=== PATIENT | female | born 1970 | race Caucasian/White ===

== ENCOUNTER 2017-01-29 22:06 | Observation (INO) | payer MEDICAID ==
[2017-01-29 22:20] VITALS: BMI 44.1
--- NOTE | 2017-01-29 22:25 | ED PDOC ---
Arrival/HPI - General Chief Complaint: Shortness Of Breath Time Seen by Provider: 01/29/17 22:10 Historian: Patient - History of Present Illness Narrative History of Present Illness (Text): 01/29/17 22:22 Amalia Blount is a 46 year old female, whose past medical history includes anemia , hypertension, and hypothyroidism, who presents to the Emergency department complaining of shortness of breath. Patient states she has been experiencing shortness of breath and chest pain, worsened with exertion, for the past few weeks. Patient notes she has history of anemia and has not had any repeat bloodwork done performed in a while due to insurance issues. Patient denies any fever, chills, nausea, vomiting, diarrhea, urinary symptoms, back pain, neck pain, headache, dizziness, or any other complaints. Symptom Onset: Gradual Symptom Course: Unchanged Activities at Onset: Rest, Light Modifying Factors (Text): Worse with exertion Context: Home Past Medical History - Provider Review Nursing Documentation Reviewed: Yes - Infectious Disease Hx of Infectious Diseases: None - Tetanus Immunization Tetanus Immunization: Unknown - Cardiac Hx Hypertension: Yes - Endocrine/Metabolic Hx Hypothyroidism: Yes - Psychiatric Hx Depression: No Hx Emotional Abuse: No Hx Physical Abuse: No Hx Substance Use: No - Suicidal Assessment Feels Threatened In Home Enviroment: No Family/Social History - Physician Review Nursing Documentation Reviewed: Yes Family/Social History: No Known Family HX Smoking Status: Never Smoked Hx Alcohol Use: No Hx Substance Use: No Hx Substance Use Treatment: No Allergies/Home Meds Allergies/Adverse Reactions: Allergies No Known Allergies Allergy (Verified 03/14/14 22:37) Home Medications: Home Meds Medication Instructions Recorded Confirmed Losartan Potassium 50 mg PO DAILY 01/29/17 01/29/17 Metoprolol Tartrate 50 mg PO BID 01/29/17 01/29/17 Review of Systems - Physician Review All systems were reviewed & negative as marked: Yes - Review of Systems Constitutional: Normal. absent: Fevers Eyes: Normal ENT: Normal Respiratory: SOB Cardiovascular: Chest Pain Gastrointestinal: Normal. absent: Abdominal Pain, Diarrhea, Nausea, Vomiting Genitourinary Female: Normal. absent: Dysuria, Frequency, Hematuria, Urine Output Changes Musculoskeletal: Normal. absent: Back Pain, Neck Pain Skin: Normal. absent: Rash Neurological: Normal. absent: Headache, Dizziness Endocrine: Normal Hemo/Lymphatic: Normal Psychiatric: Normal Physical Exam Vital Signs Reviewed: Yes Vital Signs Temp Pulse Resp BP Pulse Ox 01/30/17 01:40 98.5 F 98 H 18 150/91 H 99 01/29/17 23:20 20 01/29/17 22:43 98.3 F 115 H 20 166/80 H 98 Temperature: Afebrile Blood Pressure: Normal Pulse: Regular Respiratory Rate: Normal Appearance: Positive for: Well-Appearing, Non-Toxic, Comfortable Pain Distress: None Mental Status: Positive for: Alert and Oriented X 3 - Systems Exam Head: Present: Atraumatic, Normocephalic Pupils: Present: PERRL Extroacular Muscles: Present: EOMI Conjunctiva: Present: Normal Mouth: Present: Moist Mucous Membranes Neck: Present: Normal Range of Motion Respiratory/Chest: Present: Clear to Auscultation, Good Air Exchange. No: Respiratory Distress, Accessory Muscle Use Cardiovascular: Present: Regular Rate and Rhythm, Normal S1, S2. No: Murmurs Abdomen: Present: Normal Bowel Sounds. No: Tenderness, Distention, Peritoneal Signs Back: Present: Normal Inspection Upper Extremity: Present: Normal Inspection. No: Cyanosis, Edema Lower Extremity: Present: Normal Inspection. No: Edema Neurological: Present: GCS=15, CN II-XII Intact, Speech Normal Skin: Present: Warm, Dry, Normal Color. No: Rashes Psychiatric: Present: Alert, Oriented x 3, Normal Insight, Normal Concentration Medical Decision Making ED Course and Treatment: 01/29/17 22:22 Impression: 46 year old female complaining of shortness of breath and exertional chest pain. Differential Diagnosis include but are not limited to: anemia vs. ACS vs. PE vs. CHF vs. dyspnea vs. chest pain Plan: -- EKG -- Chest X-ray -- US Duplex Lower Extremities -- Labs, cardiac enzymes, BNP, D-dimer -- Reassess and disposition Progress Notes: Reviewed EKG, sinus tachycardia at 114 bpm. Possible left atrial enlargement. Non-specific T wave changes. 01/29/17 23:20 Reviewed labs, hemoglobin: 7.8, hemtaocrit: 26.7. Blood type and screen ordered. 01/29/17 23:46 Reviewed radiology, Chest X-ray shows no acute processes. 01/30/17 00:15 Reviewed sono, US Duplex Lower Extremities are negative for DVT. Case discussed with Dr. Humphrey, who is aware and agrees with plan. Accepts pt in to her service. Pt will go to Telemetry observation for chest pain and anemia. Requests Dr. Dillon on consult. Discussed results and hospital observation plan with pt, who is aware and verbalizes understanding. Agreeable with plan. Will transfuse pt. - Lab Interpretations Lab Results: 01/29/17 22:41 01/29/17 22:41 Lab Results 01/30/17 00:30: Blood Type B POSITIVE, Antibody Screen Negative, Crossmatch See Detail, BBK History Checked No verified bt 01/29/17 22:41: Sodium 139, Potassium 4.3, Chloride 103, Carbon Dioxide 26, Anion Gap 14, BUN 11, Creatinine 0.8, Est GFR ( Amer) > 60, Est GFR (Non- Af Amer) > 60, Random Glucose 104, Calcium 9.3, Total Bilirubin 0.5, AST 24, ALT 35, Alkaline Phosphatase 91, Lactate Dehydrogenase 419, Total Creatine Kinase 119, Troponin I < 0.01, NT-Pro-B Natriuret Pep 133, Total Protein 8.3, Albumin 4.4, Globulin 3.9, Albumin/Globulin Ratio 1.1 01/29/17 22:41: WBC 8.4, RBC 4.01, Hgb 7.8 L, Hct 26.7 L, MCV 66.6 L, MCH 19.5 L , MCHC 29.2 L, RDW 17.7 H, Plt Count 597 H, MPV 9.4, Gran % 57.1, Lymph % (Auto ) 32.0, [place] % (Auto) 8.1 H, Eos % (Auto) 2.7, Baso % (Auto) 0.1, Gran # 4.82, Lymph # 2.7, [place] # 0.7 H, Eos # 0.2, Baso # 0.01 01/29/17 22:41: PT 11.2, INR 1.04, APTT 26.7, D-Dimer, Quantitative 0.30 I have reviewed the lab results: Yes - RAD Interpretation Radiology Orders: 01/29/17 22:23 CHEST PORTABLE [RAD] Stat 01/29/17 22:24 DUPLEX LOWER EXTRM VEIN BILAT [US] Stat Extruder: ED Physician - EKG Interpretation Interpreted by ED Physician: Yes Type: 12 lead EKG - Medication Orders Current Medication Orders: Discontinued Medications Acetaminophen (Tylenol 325mg Tab) 650 mg PO Q4H PRN PRN Reason: Fever >100.5 F Acetaminophen (Tylenol 325mg Tab) 650 mg PO STAT STA Stop: 01/30/17 21:13 Last Admin: 01/30/17 21:17 Dose: 650 mg Re-Assess: MAR Pain/Vitals Document 01/30/17 22:17 [facility] (Rec: 01/30/17 22:21 [facility] [id number]) Pain Reassessment Is This A Pain ReAssessment? Yes Sleep Is patient sleeping during reassessment? No Presence of Pain Presence of Pain No Cyanocobalamin (Vitamin B12 100 Mcg Tab) 100 mcg PO BID [facility] Last Admin: 01/30/17 17:44 Dose: 100 mcg Cyanocobalamin (Vitamin B12 1000 Mcg Tab) 1,000 mcg PO DAILY [facility] Last Admin: 01/31/17 09:27 Dose: 1,000 mcg Docusate Sodium (Colace) 100 mg PO TID [facility] Last Admin: 01/31/17 17:28 Dose: 100 mg Ferrous Sulfate (Feosol) 324 mg PO DAILY [facility] Last Admin: 01/31/17 09:28 Dose: 324 mg Ferrous Sulfate (Feosol) 324 mg PO .EXTRA DOSE ONE Stop: 01/30/17 10:46 Last Admin: 01/30/17 11:17 Dose: 324 mg Folic Acid (Folic Acid) 1 mg PO DAILY [facility] Last Admin: 01/31/17 09:27 Dose: 1 mg Sodium Chloride (Sodium Chloride 0.9%) 1,000 mls @ 60 mls/hr IV .[id number] STA Stop: 01/30/17 16:58 Last Admin: 01/30/17 00:41 Dose: 60 mls/hr Iron Sucrose 100 mg/ Sodium (Chloride) 105 mls @ 210 mls/hr IVPB ONCE ONE Stop: 01/30/17 11:14 Last Admin: 01/30/17 11:20 Dose: 210 mls/hr Iron Sucrose 200 mg/ Sodium (Chloride) 110 mls @ 110 mls/hr IVPB ONCE ONE Stop: 01/31/17 08:35 Last Admin: 01/31/17 08:16 Dose: 110 mls/hr Iron Sucrose (Venofer) 100 mg IVP ONCE ONE Stop: 01/30/17 10:34 Last Admin: 01/30/17 10:45 Dose: Levothyroxine Sodium (Synthroid) 100 mcg PO DAILY [facility] Last Admin: 01/31/17 09:28 Dose: 100 mcg Levothyroxine Sodium (Synthroid) 150 mcg PO ACB [facility] Losartan Potassium (Cozaar) 50 mg PO DAILY [facility] Last Admin: 01/31/17 09:28 Dose: 50 mg Metoprolol Tartrate (Lopressor) 50 mg PO BID [facility] Last Admin: 01/31/17 17:29 Dose: 50 mg Multivitamins (Thera Tab) 1 tab PO DAILY [facility] Last Admin: 01/31/17 12:58 Dose: 1 tab Non-Formulary Medication (Ferrous Sulfate [Feosol]) 325 mg PO DAILY [facility] Last Admin: 01/30/17 10:45 Dose: Non-Formulary Medication (Cyanocobalamin [Vitamin B12]) 100 mcg PO BID [facility] Pantoprazole Sodium (Protonix Ec Tab) 40 mg PO 0630 [facility] Last Admin: 01/31/17 06:09 Dose: 40 mg Polyethylene Glycol (Miralax) 17 gm PO BID PRN PRN Reason: Constipation - Scribe Statement The provider has reviewed the documentation as recorded by the Fidencioibcoreen Diaz All medical record entries made by the Fidencioibcoreen were at my direction and personally dictated by me. I have reviewed the chart and agree that the record accurately reflects my personal performance of the history, physical exam, medical decision making, and the department course for this patient. I have also personally directed, reviewed, and agree with the discharge instructions and disposition. Disposition/Present on Arrival - Present on Arrival Any Indicators Present on Arrival: No History of DVT/PE: No History of Uncontrolled Diabetes: No Urinary Catheter: No History of Decub. Ulcer: No History Surgical Site Infection Following: None - Disposition Have Diagnosis and Disposition been Completed?: Yes Diagnosis: Anemia, Chest pain Disposition: HOSPITALIZED Disposition Time: 00:15 Condition: GOOD
[2017-01-29 23:00] LABS: ADD MANUAL DIFF? NO
[2017-01-29 23:07] LABS: BASO # 0.01 K/mm3 (0.0-2.0); BASO % 0.1 % (0.0-3.0); EOS # 0.2 (0.0-0.7); EOS % 2.7 % (1.5-5.0); GRAN # 4.82 (1.4-6.5); GRAN % 57.1 % (50.0-68.0); HEMATOCRIT 26.7 % (36.0-48.0); LYMPH # 2.7 (1.2-3.4); MEAN CELL VOLUME 66.6 fL (80.0-105.0); MEAN CORPUSCULAR HEMOGLOBIN 19.5 pg (25.0-35.0); MEAN CORPUSCULAR HGB CONC 29.2 g/dl (31.0-37.0); MEAN PLATELET VOLUME 9.4 fl (7.0-11.0); MONO # 0.7 (0.1-0.6); MONO % 8.1 % (1.0-6.0); PLATELET COUNT 597 10^3/uL (120.0-450.0); RED CELL DISTRIBUTION WIDTH 17.7 % (11.5-14.5); WHITE BLOOD COUNT 8.4 10^3/ul (4.5-11.0)
[2017-01-29 23:23] LABS: INR 1.04 (0.93-1.08); PARTIAL THROMBOPLASTIN TIME 26.7 Seconds (23.7-30.8)
[2017-01-29 23:24] LABS: ALB/GLOB RATIO 1.1 (1.1-1.8); ALKALINE PHOSPHATASE 91 U/L (38-133); ALT/SGPT 35 U/L (7-56); AST/SGOT 24 U/L (15-39); BILIRUBIN,TOTAL 0.5 mg/dL (0.2-1.3); BLOOD UREA NITROGEN 11 mg/dL (7-21); CALCIUM 9.3 mg/dL (8.4-10.5); CARBON DIOXIDE 26 mmol/L (21-33); CHLORIDE 103 mmol/L (98-107); GFR AFRICAN-AMERICAN > 60; GLUCOSE,RANDOM 104 mg/dL (70-110); POTASSIUM 4.3 mmol/L (3.6-5.0); SODIUM 139 mmol/L (132-148); TOTAL PROTEIN 8.3 g/dL (5.8-8.3)
[2017-01-29 23:26] LABS: D DIMER 0.3 mg/L FEU (0-0.50)
[2017-01-29 23:50] LABS: TROPONIN I < 0.01 ng/mL
[2017-01-30] MEDS ORDERED: Sodium Chloride 0.9% 1,000 ML IV STA (00:19)
--- NOTE | 2017-01-30 08:39 | US ---
PROCEDURE: Bilateral lower extremity venous duplex Doppler. HISTORY: sob COMPARISON: None available. TECHNIQUE: Bilateral common femoral, superficial femoral, popliteal and posterior tibial veins were evaluated. Flow was assessed with color Doppler, compressibility, assessment of phasic flow and augmentation response. FINDINGS: COMMON FEMORAL VEIN: Right CFV: Unremarkable. Left CFV: Unremarkable. SUPERFICIAL FEMORAL VEIN: Right SFV: Unremarkable. Left SFV: Unremarkable. POPLITEAL VEIN: Right Popliteal: Unremarkable. Left Popliteal: Unremarkable. POSTERIOR TIBIAL VEIN: Right PTV: Unremarkable. Left PTV: Unremarkable. OTHER FINDINGS: None. IMPRESSION: No evidence of deep venous thrombosis.
--- NOTE | 2017-01-30 08:42 | RAD ---
PROCEDURE: CHEST RADIOGRAPH, 1 VIEW HISTORY: cp COMPARISON: None available. FINDINGS: LUNGS: Hazy opacity in the right hilum could be overlapping vascular structures. PLEURA: No pneumothorax or pleural fluid seen. CARDIOVASCULAR: Normal. OSSEOUS STRUCTURES: No significant abnormalities. VISUALIZED UPPER ABDOMEN: Upper abdomen is suboptimally evaluated. OTHER FINDINGS: None. IMPRESSION: Hazy opacity in the right hilum could be overlapping vascular structures. PA lateral chest radiographs recommended.
[2017-01-30] MEDS ORDERED: CYANOCOBALAMIN 100 MCG PO SCH ×2 (10:30→18:00)
[2017-01-30] MEDS ORDERED: Non Formulary Medication (Ferrous Sulfate [Feosol] 325 MG) PO SCH (10:30)
[2017-01-30] MEDS ORDERED: Iron Sucrose 100 mg/5 ml Inj IVP ONE (10:33)
--- NOTE | 2017-01-30 10:40 | CARD ---
APPROVED REPORT EKG Measurement Heart [id number] <Conclusion> Sinus tachycardia Possible Left atrial enlargement Nonspecific T wave abnormality No change
[2017-01-30] MEDS: Levothyroxine 100 MCG TAB PO SCH (11:18)
--- NOTE | 2017-01-30 11:35 | CT ---
PROCEDURE: CT Chest without contrast HISTORY: ab. chest xrays COMPARISON: None. TECHNIQUE: Contiguous axial images were obtained through the chest without intravenous contrast enhancement. Sagittal and coronal reconstructions were performed. Radiation dose (DLP): 911.68 mGy-cm. This CT exam was performed using one or more of the following dose reduction techniques: Automated exposure control, adjustment of the mA and/or kV according to patient size, and/or use of iterative reconstruction technique. FINDINGS: LUNGS: 5 millimeter nodule in the medial right lower lobe. This is seen on image 62, series 4. 6 millimeter nodule seen in the left lower lobe (image 17, series 4.) Mosaic attenuation of the lung bases which could represent small airways disease. MEDIASTINUM: Unremarkable thoracic aorta. No aneurysm. Normal sized heart. Main pulmonary artery unremarkable. No vascular congestion. No bulky lymphadenopathy. Hilar lymph nodes suboptimally evaluated. Heterogeneous soft tissue density in the prevascular space. This is of unclear clinical significance. PLEURA: No pleural fluid. No pneumothorax. BONES: No fracture. No destructive lesion. UPPER ABDOMEN: Grossly unremarkable. OTHER FINDINGS: Mild heterogeneity of the thyroid gland. IMPRESSION: No airspace opacity. Pulmonary nodules as described above. Guidelines by the Fleischner society (radiology 2005; 237:395-400) suggests that in patients with low risk for lung cancer, nodules from 5 mm to 6 mm in diameter should have follow-up in approximately 12 months. In patients with high-risk, such as those were smokers, follow-up is recommended in 6 months. Patients with a known malignancy or risk for metastases should receive 3 month follow-up. Mild heterogeneity of the thyroid gland. Dedicated ultrasound recommended. Heterogeneous soft tissue density in the prevascular space. This is of unclear clinical significance.
[2017-01-30 12:27] LABS: BASO # 0.03 K/mm3 (0.0-2.0); BASO % 0.4 % (0.0-3.0); EOS # 0.2 (0.0-0.7); EOS % 3.2 % (1.5-5.0); GRAN # 4.73 (1.4-6.5); GRAN % 63.9 % (50.0-68.0); HEMATOCRIT 29.7 % (36.0-48.0); LYMPH # 1.9 (1.2-3.4); LYMPH % 25.1 % (22.0-35.0); MEAN CORPUSCULAR HEMOGLOBIN 20.6 pg (25.0-35.0); MEAN CORPUSCULAR HGB CONC 30.3 g/dl (31.0-37.0); MEAN PLATELET VOLUME 9.4 fl (7.0-11.0); MONO # 0.6 (0.1-0.6); MONO % 7.4 % (1.0-6.0); PLATELET COUNT 576 10^3/uL (120.0-450.0); RED CELL DISTRIBUTION WIDTH 19.2 % (11.5-14.5); WHITE BLOOD COUNT 7.4 10^3/ul (4.5-11.0)
[2017-01-30 12:35] LABS: BLOOD UREA NITROGEN 10 mg/dL (7-21); CALCIUM 9.1 mg/dL (8.4-10.5); CARBON DIOXIDE 26 mmol/L (21-33); CHLORIDE 102 mmol/L (98-107); GFR AFRICAN-AMERICAN > 60; GLUCOSE,RANDOM 95 mg/dL (70-110); POTASSIUM 4.2 mmol/L (3.6-5.0); SODIUM 140 mmol/L (132-148)
[2017-01-30 12:44] LABS: IRON 435 ug/dL (45-180)
[2017-01-30 12:53] LABS: ADD MANUAL DIFF? NO
--- NOTE | 2017-01-30 16:15 | CON ---
DATE: 01/30/2017 REASON FOR CONSULTATION: Sinus tachycardia. The patient is a 46-year-old [place] female who has a history of hypertension, hypothyroidism and c hronic anemia that required blood transfusion in the past. The patient does not recall any GI workup done in the past. She does take aspirin and Motrin excessively for her pain, especially menstrual p ain. The patient does report dark stool, but attributes that to the iron pill that she takes. The p atient is not aware of any history of heart attack in the past. The patient presents because of shor tness of breath and chest pain on exertion. SOCIAL HISTORY: The patient is a nonsmoker. MEDICATIONS: Cozaar 50 mg daily, vitamin B12 100 mcg p.o. twice a day, Feosol 324 mg once a day, Lop ressor 50 mg twice a day, Synthroid 100 mcg once a day, Tylenol 650 mg p.o. q. 4 hours. REVIEW OF SYSTEMS: No hematemesis. No fever or chills. No syncope. PHYSICAL EXAMINATION: GENERAL: The patient is a middle-aged female who does not appear to be in any distress. VITAL SIGNS: Blood pressure 159/79, heart rate 111, temperature 98, respiration 20. HEENT: Pale conjunctivae. CHEST: Clear. HEART: S1, S2 regular. ABDOMEN: Soft. EXTREMITIES: No edema or calf tenderness. LABORATORIES: Hemoglobin and hematocrit on admission were 7.8 and 26.7 and after receiving 1 unit of packed RBC transfusion, today's hemoglobin and hematocrit are 9.0 and 29.7, white count is within no rmal limit, platelet count is elevated 576. PT, PTT and D-dimer, INR are all within normal limits. Today's SMA-7 is within normal limits. Iron is elevated at 435 with iron saturation 91%. Total iron binding capacity is within normal limits. Chest CT scan without contrast: No airspace opacity, pulmonary nodules, mild heterogenicity of the t hyroid gland, dedicated ultrasound recommended. EKG revealed sinus tachycardia at 114, left atrial e nlargement with nonspecific T-wave changes. ASSESSMENT: 1. Chronic anemia requiring blood transfusion. 2. Uncontrolled hypertension. 3. Sinus tachycardia. RECOMMENDATIONS: Continue current Cozaar at 50 mg once a day, Lopressor at 50 mg twice a day, Synthr oid 100 mcg once a day. May discontinue iron supplement. Obtain TSH level, echocardiogram and thyro id ultrasound. Stepan Simms MD cc: [id number] TT: 01/30/2017 16:14:52 Confirmation # [id number] Dictation # [id number]
[2017-01-30] MEDS ORDERED: POLYETHYLENE GLYCOL 3350 17 GM/Dose PACKET PO PRN (17:34)
--- NOTE | 2017-01-30 17:34 | CP.PCM.HP ---
History of Present Illness - History of Present Illness History of Present Illness: CC: Shortness of breath, palpitations, lightheadeness x couple of weeks HPI: 46 Year old [place] morbidly obese female with history of hypothyroidism , iron deficiency anemia due to menorrhagia, essential hypertension who got admitted last night for evaluation of shortness of breath, tiredness, palpitations and lightheadedness for the past couple of weeks which got worsened over the past few days and patient was told by PMD to come to the hospital. Currently she denies any symptoms including chest pain, headache, dizziness, nausea, vomiting, abdominal pain or urinary complaints. Patient states that she has been non complaint with iron due to constipation. PMD: Dr Nuris Humphrey Inspector Screen [employer]ing: Dr eSveriano Walsh: [facility] PMH:hypothyroidism, iron deficiency anemia due to menorrhagia, essential hypertension Allergy: NKDA Meds: Synthroid, feosol, metoprolol, losartan and B12 Hospitalization: Last hospitalization was in 2010 due to similar reason. Family History: All family members have hypertension. Father had HTN and CAD Social History: Does not smoke, drink alcohol or use street drugs. Lives at home with her . Does not have children. Present on Admission - Present on Admission Any Indicators Present on Admission: No History of DVT/PE: No History of Uncontrolled Diabetes: No Urinary Catheter: No Decubitus Ulcer Present: No Review of Systems - Constitutional Constitutional: Daytime Sleepiness, Snoring, Weight Gain. absent: Anorexia, Chills, Excessive Sweating, Fatigue, Fever, Frequent Falls, Headache, Increased Appetite, Malaise, Night Sweats, Weakness - EENT Eyes: absent: Blurred Vision, Change in Vision, Decreased Night Vision, Floaters , Irritation, Itchy Eyes, Loss of Peripheral Vision, Requires Corrective Lenses , Sees Flashes, Spots in Vision Ears: absent: Decreased Hearing, Ear Discharge, Ear Pain Nose/Mouth/Throat: absent: Nasal Congestion, Nasal Discharge, Nasal Obstruction , Nasal Trauma, Sinus Pain, Sinus Pressure, Bleeding Gums, Change in Voice, Hoarsness, Lip Swelling, Mouth Lesions, Mouth Pain, Throat Swelling, Tongue Swelling, Facial Pain - Cardiovascular Cardiovascular: Dyspnea on Exertion. absent: Acrocyanosis, Chest Pain, Chest Pain at Rest, Chest Pain with Activity, Edema, Irregular Heart Rhythm, Leg Edema , Leg Ulcers, Lightheadedness, Orthopnea, Paroxysmal Nocturnal Dyspnea, Pedal Edema, Radiating Pain, Rapid Heart Rate - Respiratory Respiratory: absent: Cough, Dyspnea, Hemoptysis, Dyspnea on Exertion, Wheezing, Chest Congestion, Excessive Mucous Production - Gastrointestinal Gastrointestinal: absent: Abdominal Pain, Belching, Bloating, Change in Bowel Habits, Constipation, Cramping, Dysphagia, Fecal Incontinence, Heartburn, Hematemesis, Hematochezia - Genitourinary Genitourinary: absent: Change in Urinary Stream, Difficulty Urinating, Dysuria, Flank Pain, Urinary Incontinence, Urinary Frequency, Urinary Hesitance, Urinary Urgency - Musculoskeletal Musculoskeletal: absent: Abnormal Gait, Atrophy, Back Pain, Deformity, Joint Swelling, Loss of Height, Muscle Cramps, Muscle Weakness, Myalgias, Neck Pain, Numbness, Stiffness - Integumentary Integumentary: absent: Acne, Alopecia, Bleeding Lesions, Change in Hair, Change in Nails, Changing Lesions, Non-Healing Lesions, Photosensitivity, Pruritus, Rash - Neurological Neurological: absent: Abnormal Gait, Abnormal Hearing, Abnormal Movements, Burning Sensations, Confusion, Convulsions, Disequilibrium, Dizziness, Numbness , Frequent Falls, Headaches, Radicular Pain, Restless Legs, Syncope, Tingling, Tremor - Psychiatric Psychiatric: absent: Abnormal Sleep Pattern, Anhedonia, Anxiety, Auditory Hallucinations, Behavioral Changes, Change in Libido, Confusion, Depression, Difficulty Concentrating, Hopelessness, Irritability, Memory Loss, Mood Swings, Panic Attacks, Suicidal Ideation, Visual Hallucinations, Tactile Hallucinations - Endocrine Endocrine: absent: Change in Body Appearance, Change in Libido, Cold Intolorance , Deepening of Voice, Excessive Sweating, Flushing, Heat Intolorance, Increase in Ring/Shoe/Hat Size, Palpitations, Polydipsia, Polyphagia, Polyuria - Hematologic/Lymphatic Hematologic: absent: Easy Bleeding, Easy Bruising, Lymphadenopathy Past Patient History - Infectious Disease Hx of Infectious Diseases: None - Tetanus Immunizations Tetanus Immunization: Unknown - Past Social History Smoking Status: Never Smoked - CARDIAC Hx Hypertension: Yes - ENDOCRINE/METABOLIC Hx Hypothyroidism: Yes - MUSCULOSKELETAL/RHEUMATOLOGICAL Hx Falls: No - PSYCHIATRIC Hx Substance Use: No Meds Allergies/Adverse Reactions: Allergies Allergy/AdvReac Type Severity Reaction Status Date / Time No Known Allergies Allergy Verified 03/14/14 22:37 Physical Exam - Constitutional Appears: Well, No Acute Distress - Head Exam Head Exam: ATRAUMATIC, NORMAL INSPECTION, NORMOCEPHALIC - Eye Exam Eye Exam: EOMI, Normal appearance - ENT Exam ENT Exam: Mucous Membranes Moist - Neck Exam Neck exam: Positive for: Full Rom, Normal Inspection - Respiratory Exam Respiratory Exam: Clear to Auscultation Bilateral, NORMAL BREATHING PATTERN. absent: Accessory Muscle Use, Chest Wall Tenderness, Rhonchi, Wheezes, Respiratory Distress - Cardiovascular Exam Cardiovascular Exam: REGULAR RHYTHM, +S1, +S2 - GI/Abdominal Exam GI & Abdominal Exam: Distended, Normal Bowel Sounds, Soft. absent: Tenderness - Rectal Exam Rectal Exam: Deferred - Extremities Exam Extremities exam: Positive for: full ROM, normal capillary refill, normal inspection, pedal pulses present. Negative for: joint swelling, pedal edema - Back Exam Back exam: FULL ROM, NORMAL INSPECTION. absent: CVA tenderness (L), CVA tenderness (R), paraspinal tenderness, rash noted, tenderness, vertebral tenderness - Neurological Exam Neurological exam: Alert, CN II-XII Intact, Normal Gait, Oriented x3, Reflexes Normal - Psychiatric Exam Psychiatric exam: Normal Affect, Normal Mood - Skin Skin Exam: Dry, Intact, Normal Color, Warm Results - Vital Signs Recent Vital Signs: Last Vital Signs Temp 98 F 01/30/17 12:00 Pulse 79 01/30/17 14:00 Resp 20 01/30/17 12:00 BP 159/79 H 01/30/17 12:00 Pulse Ox 98 01/30/17 06:24 - Labs Result Diagrams: 01/30/17 12:00 01/30/17 12:00 Labs: Laboratory Results - last 24 hr 01/30/17 01/30/17 01/30/17 02:40 12:00 12:00 WBC 7.4 RBC 4.37 Hgb 9.0 L Hct 29.7 L MCV 68.0 L MCH 20.6 L MCHC 30.3 L RDW 19.2 H Plt Count 576 H MPV 9.4 Gran % 63.9 Lymph % (Auto) 25.1 [place] % (Auto) 7.4 H Eos % (Auto) 3.2 Baso % (Auto) 0.4 Gran # 4.73 Lymph # 1.9 [place] # 0.6 Eos # 0.2 Baso # 0.03 Sodium 140 Potassium 4.2 Chloride 102 Carbon Dioxide 26 Anion Gap 16 BUN 10 Creatinine 0.7 Est GFR ( Amer) > 60 Est GFR (Non-Af Amer) > 60 Random Glucose 95 Calcium 9.1 Iron TIBC % Saturation Blood Type Confirm B POSITIVE 01/30/17 12:00 WBC RBC Hgb Hct MCV MCH MCHC RDW Plt Count MPV Gran % Lymph % (Auto) [place] % (Auto) Eos % (Auto) Baso % (Auto) Gran # Lymph # [place] # Eos # Baso # Sodium Potassium Chloride Carbon Dioxide Anion Gap BUN Creatinine Est GFR ( Amer) Est GFR (Non-Af Amer) Random Glucose Calcium Iron 435 H TIBC 478 % Saturation 91 H Blood Type Confirm Assessment & Plan - Assessment and Plan (Free Text) Plan: This is 46 year old female with the history of hypothyroidism, iron deficiency anemia due to menorrhagia, essential hypertension who got admitted last night for evaluation of shortness of breath, tiredness, palpitations and lightheadedness due to symptomatic anemia. 1-Symptomatic anemia: secondary to menorrhagia. S/P 1 unit of prbc and venofer. Iron studies , folate and b12 are pending at this time. Inspector Screen [employer]ing on board. Patient will follow up with obgyn as an outpatient. Patient denies taking NSAIDs on regular basis. Will check stool for occult blood. 2-Multiple pulmonary nodules on CT scan: Patient does not smoke however she reports history of passive smoking. There is a 5mm nodule in RLL and 6 mm nodule in LLL. Plan to repeat CT scan in 6 months for surveillance. 3-Suspected NATALI: Will recommend sleep study as an outpatient. Discussed with Dr Khan. 4-Hypothyroidism: Will continue synthroid. Thyroid ultrasound done and result is pending. Will check thyroid function test in am. 5-Essential hypertension: Continue metoprolol and losartan. 6-GI prophylaxis: start protonix 7-DVT prophylaxis: Start scd. 8-Morbid obesity: Life style modification advised. 9-Constipation: will start colace and miralax. Dispo: Upon discharge patient will follow up with Dr Humphrey, Dr العلي, [employer] Supervisor and Dr Khan.
[2017-01-30 18:48] LABS: FOLATE 11.1 ng/mL
--- NOTE | 2017-01-30 18:52 | CON ---
DATE: 01/30/2017 REFERRING PHYSICIAN: . REASON FOR CONSULT: Shortness of breath, lung nodule. HISTORY OF PRESENT ILLNESS: This is a 46-year-old obese female with past medical history significant for hypothyroid, known history of iron deficiency anemia in the past, received transfusion and IV ir on, has a menorrhagia, hypertension, comes into ER with lightheadedness, palpitations, shortness of b reath. No specific chest pain. Workup on CAT scan shows small lung nodule, otherwise unremarkable. She has been followed by Dr. العلي for hematology point of view. Admitted to have loud snoring, day time sleepy and tired. PAST MEDICAL HISTORY: Hypothyroid, anemia which is iron deficiency, hypertension. ALLERGIES: None known. SOCIAL HISTORY: No history of smoking, but does have a secondhand smoking . FAMILY HISTORY: Positive for coronary artery disease, hypertension. ALLERGIES: None known. MEDICATIONS: Presently, she is on Colace 100 mg 3 times a day, Cozaar 50 mg daily, ferrous sulfate 3 25 mg daily, metoprolol tartrate 50 mg twice a day, MiraLax 17 grams twice a day, Protonix 40 mg ruddy y, Synthroid 100 mcg daily, Tylenol p.r.n., vitamin B12 100 mg daily. REVIEW OF SYSTEMS: No headache, no rhinitis. Does have loud snoring, daytime sleepy and tired, shor t of breath with exertion. No nausea, no vomiting, no abdominal pain, no dysuria. No leg pain or le g swelling. PHYSICAL EXAMINATION: GENERAL: Lying in the bed in no acute distress. VITAL SIGNS: Temp is 98, heart is 82, respiratory rate is 20, blood pressure 165/86, pulse ox 99% on room air. HEENT: Moist mucous membranes. Crowded airway. Mallampati score is 4. NECK: Supple. No JVD. LUNGS: Has a fair airflow with few rhonchi. HEART: S1, S2. ABDOMEN: Soft, nontender. No organomegaly. EXTREMITIES: There is no edema. NEUROLOGIC: Awake, alert, follows simple commands. LABORATORY DATA: Shows hemoglobin on admission was 7.8, after transfusion is 9.0. Hematocrit 29.7, WBC 7.4, platelet is 576. INR 1.04, PTT is 27. D-dimer 0.30. Sodium 140, potassium 4.2, chloride 1 02, bicarbonate 26, BUN 10, creatinine 0.7, glucose 95, calcium 9.1, iron is 435. Ferritin is pendin g. AST 24, ALT 35, alkaline phosphatase is 91. ProBNP is 133. B12, folate is pending. CT of the c hest is done, which shows a pulmonary nodule which is 5 mm in the medial right lower lobe area. Ther e is also a 6 mm nodule in the left lower lobe. Venous Doppler of lower extremity negative for DVT. IMPRESSION AND PLAN: Shortness of breath, probably secondary to severe anemia, status post transfusi on, feels better. Also getting IV iron. History of hypothyroidism, hypertension, obesity, may have sleep apnea syndrome, found to have a lung nodule. Case discussed with , who is PMD. Pulmo nary point of view, she is stable, needs a followup CAT scan in about 6 months or so. She is going f or echocardiogram. If stable, she could be discharged home and need attended sleep study as an outpa tient. Continue followup with hematology. Thank you and will follow with you. Jarrell Khan MD cc: [phone] TT: 01/30/2017 18:51:16 Confirmation # [id number] Dictation # [id number] mn
--- NOTE | 2017-01-30 19:50 | CON ---
DATE: 01/30/2017 HISTORY OF PRESENT ILLNESS: The patient is a 46-year-old female who was diagnosed with iron deficiency anemia for past 2 years. She has menorrhagia, which is the likely cause of severe anemia. She was admitted to the hospital with shortness of breath, lightheadedness and palpitations for a few weeks. She was found to have hemoglobin of 7.8. Thalassemia trait was ruled out. She does not have thalassemia trait. She continues to have heavy menstruation. PAST MEDICAL HISTORY: Hypothyroidism, iron deficiency anemia related to menorrhagia, hypertension. ALLERGIES: No known drug allergies. HOME MEDICATIONS: Synthroid, metoprolol, losartan, B12. FAMILY HISTORY: Positive for hypertension and coronary artery disease. SOCIAL HISTORY: No history of drinking, no history of alcohol abuse. REVIEW OF SYSTEMS: As per HPI. Rest of 12-point review of systems reviewed and negative. PHYSICAL EXAMINATION: GENERAL: Comfortable in bed, in no acute distress. VITAL SIGNS: Tachycardia heart rate 98 per minute, blood pressure 159/70, heart rate is 79 per minute. HEENT: Normal. NECK: No lymphadenopathy. CHEST: Air entry present, equal bilateral. No added sound. CARDIOVASCULAR: Within normal limits. ABDOMEN: Soft, nontender, no hepatosplenomegaly. EXTREMITIES: No edema. CENTRAL NERVOUS SYSTEM: Alert, oriented x 3, no focal sensorimotor deficit. LABORATORY DATA: White count 8.4, hemoglobin 7.8, hematocrit 26.7, MCV 66, platelet count 597. Granulocyte 57%, lymphocyte 32, monocyte 8%. Sodium 140, potassium 4.2, BUN 10, creatinine 0.7. Iron studies are erroneous due to ongoing IV iron infusion. Ferritin of 5, B12 less than 159. Folate 11.1. ASSESSMENT: 1. Severe iron deficiency. 2. B12 deficiency. 3. Hypothyroidism. 4. Morbid obesity. 5. Hypertension. PLAN: IV iron 200 mg given today. she can continue PO iron 325 mg PO BID. B12 1 mg daily, folic acid 1 mg daily. If B12, folic acid do not improve on orals, she will need parenteral B12 supplementation. Hypothyroidism on Synthroid 100 mcg daily; continue that. Thyroid function test, TSH normal, TSH with the a.m. labs. For menorrhagia, she will need OB consult, will benefit from Lupron monthly. Kylie العلي MD cc: [id number] TT: 01/30/2017 19:49:45 Confirmation # [id number] Dictation # [id number] ln MTDD
--- NOTE | 2017-01-30 21:14 | CP.PCM.PN ---
Subjective - Date & Time of Evaluation Date of Evaluation: 01/30/17 Time of Evaluation: 21:13 - Subjective Subjective: # 22 angiocath was inserted in right arm. Dx:Poor venous access. S:Requested pain medicine for pain in right arm from being poked for IV access earlier by others. Has no other complaints now. Pertinent medical records was reviewed. O: Last Vital Signs 3 Temp 98.5 F 01/31/17 18:00 Pulse 82 01/31/17 18:00 Resp 20 01/31/17 18:00 BP 170/93 H 01/31/17 18:00 Pulse Ox 96 01/31/17 05:14 Awake, alert , not in distress. Obese. LUNGS:Normal breathing pattern. Right arm examination in normal. A:Right arm pain. P:Tylenol 650 mg PO x 1. Objective - Vital Signs/Intake and Output Vital Signs (last 24 hours): Temp Pulse Resp BP Pulse Ox 98 F 90 18 165/86 H 99 01/30/17 17:36 01/30/17 18:00 01/30/17 17:36 01/30/17 17:43 01/30/17 17:36 Intake and Output: 01/30/17 01/31/17 18:59 06:59 Intake Total 540 Output Total 1100 Balance -560 - Medications Medications: Current Medications Acetaminophen (Tylenol 325mg Tab) 650 mg PO Q4H PRN PRN Reason: Fever >100.5 F Acetaminophen (Tylenol 325mg Tab) 650 mg PO STAT STA Stop: 01/30/17 21:13 Cyanocobalamin (Vitamin B12 1000 Mcg Tab) 1,000 mcg PO DAILY ON LICENSE OF [facility] Docusate Sodium (Colace) 100 mg PO TID ON LICENSE OF [facility] Last Admin: 01/30/17 17:43 Dose: 100 mg Ferrous Sulfate (Feosol) 324 mg PO DAILY ON LICENSE OF [facility] Folic Acid (Folic Acid) 1 mg PO DAILY ON LICENSE OF [facility] Levothyroxine Sodium (Synthroid) 100 mcg PO DAILY ON LICENSE [facility] Last Admin: 01/30/17 11:18 Dose: 100 mcg Losartan Potassium (Cozaar) 50 mg PO DAILY ON [facility] Last Admin: 01/30/17 11:17 Dose: 50 mg Metoprolol Tartrate (Lopressor) 50 mg PO BID ON LICENSE OF [facility] Last Admin: 01/30/17 17:43 Dose: 50 mg Pantoprazole Sodium (Protonix Ec Tab) 40 mg PO 0630 ON LICENSE OF [facility] Polyethylene Glycol (Miralax) 17 gm PO BID PRN PRN Reason: Constipation - Labs Labs: 01/30/17 12:00 01/30/17 12:00 PT 11.2 Seconds (9.9-11.8) 01/29/17 22:41 INR 1.04 (0.93-1.08) 01/29/17 22:41 APTT 26.7 Seconds (23.7-30.8) 01/29/17 22:41
[2017-01-31 05:14] VITALS: O2SAT 96
[2017-01-31] MEDS ORDERED: Pantoprazole 40 mg EC Tab PO SCH (06:30)
[2017-01-31 07:13] LABS: HEMATOCRIT 28.2 % (36.0-48.0); MEAN CELL VOLUME 68.4 fL (80.0-105.0); MEAN CORPUSCULAR HEMOGLOBIN 20.4 pg (25.0-35.0); MEAN CORPUSCULAR HGB CONC 29.8 g/dl (31.0-37.0); MEAN PLATELET VOLUME 9.7 fl (7.0-11.0); RED CELL DISTRIBUTION WIDTH 19.1 % (11.5-14.5); WHITE BLOOD COUNT 7.2 10^3/ul (4.5-11.0)
[2017-01-31 07:16] LABS: T4 7.4 ug/dL (5.5-11.0)
[2017-01-31 07:29] LABS: THYROID STIMULATING HORMONE 9.02 mIU/mL (0.46-4.68)
[2017-01-31 07:33] LABS: BLOOD UREA NITROGEN 11 mg/dL (7-21); CALCIUM 8.8 mg/dL (8.4-10.5); CARBON DIOXIDE 27 mmol/L (21-33); CHLORIDE 102 mmol/L (98-107); GFR AFRICAN-AMERICAN > 60; GLUCOSE,RANDOM 103 mg/dL (70-110); SODIUM 137 mmol/L (132-148)
[2017-01-31] MEDS: Levothyroxine 100 MCG TAB PO SCH (09:28)
[2017-01-31] MEDS ORDERED: Multivitamin Therapeutic Tab PO SCH (12:45)
--- NOTE | 2017-01-31 13:31 | PN ---
DATE: 01/31/2017 REASON FOR CONSULTATION: Sinus tachycardia, shortness of breath, chest pain. BRIEF CLINICAL HISTORY: This is a 46-year-old [place] female with a past medical history significa nt for obesity, hypertension, hypothyroidism, chronic anemia requiring blood transfusion. Admitted w ith hemoglobin 7.4 and very short of breath on going to the bathroom. Cardiology consult was called for cardiac evaluation. The patient used to take aspirin and Motrin for menstrual pain. Also, repor ts dark tarry colored stool. Admitting hemoglobin 7.8. The patient got the unit of blood and since then, she stated symptoms significantly improved. Denies any chest pain, shortness of breath, any pa lpitation now. PHYSICAL EXAMINATION: VITAL SIGNS: Temperature afebrile, heart rate 75, blood pressure 133/73. HEENT: PERRLA. Extraocular muscles intact. NECK: Supple. No carotid bruits. No thyromegaly. CHEST: Clear to auscultation. HEART: S1, S2 regular. ABDOMEN: Soft. EXTREMITIES: Clubbing, cyanosis negative. BLOOD WORKUP: WBC , hemoglobin 8.4, hematocrit 28.2, platelet count 541. Chemistry shows sodiu m , potassium 4, chloride 102, carbon dioxide 27, anion gap of 12, BUN 11, creatinine 0.7. Trop onin 0.01, negative. 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 RECOMMENDATION: Consider gastrointestinal workup. Echo to assess left ventricular function if not d one recently. Will avoid a stress test now because the patient may end up in false abnormal stress t est, end up in doing catheterization, but definitely get the echo to assess left ventricular function if not done recently. Keep hemoglobin around 7. gastrointestinal workup. EKG is pretty brent gn. Discussed with the patient. We will discontinue telemetry. Thank you, Dr. Humphrey, for providing us the opportunity in taking care of the patient. Also, we will adjust the medication for blood pressure and for thyroid because patient is still hypothyroidism. T SH is 9 and patient was on 100 mcg of levothyroxine at home and today's TSH is 9.02, so we will incre ase to 125 mcg. We will get the lipid profile as well as get the hemoglobin A1c. Thank you, Dr. Humphrey, for providing us the opportunity in taking care of the patient. The patient i s not in congestive heart failure. BNP was 133. Clinically also, patient is not in congestive heart failure. If the patient gets symptomatic, consider packed red blood cell transfusion. Repeat the b lood workup in the morning. Jarrell Gooden MD cc: [id number] TT: 01/31/2017 13:31:11 Confirmation # [id number] Dictation # [id number]
--- NOTE | 2017-01-31 15:30 | CP.PCM.PN ---
Subjective - Date & Time of Evaluation Date of Evaluation: 01/31/17 Time of Evaluation: 12:00 - Subjective Subjective: Pt has very poor veins,needs iv access. Objective - Vital Signs/Intake and Output Vital Signs (last 24 hours): Temp Pulse Resp BP Pulse Ox 97.3 F L 75 18 133/73 96 01/31/17 12:00 01/31/17 12:00 01/31/17 12:00 01/31/17 12:00 01/31/17 05:14 Intake and Output: 01/31/17 01/31/17 06:59 18:59 Intake Total 360 Output Total 0 Balance 360 - Medications Medications: Current Medications Acetaminophen (Tylenol 325mg Tab) 650 mg PO Q4H PRN PRN Reason: Fever >100.5 F Cyanocobalamin (Vitamin B12 1000 Mcg Tab) 1,000 mcg PO DAILY [facility] Last Admin: 01/31/17 09:27 Dose: 1,000 mcg Docusate Sodium (Colace) 100 mg PO TID [facility] Last Admin: 01/31/17 13:56 Dose: 100 mg Ferrous Sulfate (Feosol) 324 mg PO DAILY [facility] Last Admin: 01/31/17 09:28 Dose: 324 mg Folic Acid (Folic Acid) 1 mg PO DAILY [facility] Last Admin: 01/31/17 09:27 Dose: 1 mg Levothyroxine Sodium (Synthroid) 150 mcg PO ACB [facility] Losartan Potassium (Cozaar) 50 mg PO DAILY [facility] Last Admin: 01/31/17 09:28 Dose: 50 mg Metoprolol Tartrate (Lopressor) 50 mg PO BID [facility] Last Admin: 01/31/17 09:27 Dose: 50 mg Multivitamins (Thera Tab) 1 tab PO DAILY [facility] Last Admin: 01/31/17 12:58 Dose: 1 tab Pantoprazole Sodium (Protonix Ec Tab) 40 mg PO 0630 [facility] Last Admin: 01/31/17 06:09 Dose: 40 mg Polyethylene Glycol (Miralax) 17 gm PO BID PRN PRN Reason: Constipation - Labs Labs: 01/31/17 06:30 01/31/17 06:30 PT 11.2 Seconds (9.9-11.8) 01/29/17 22:41 INR 1.04 (0.93-1.08) 01/29/17 22:41 APTT 26.7 Seconds (23.7-30.8) 01/29/17 22:41 - Constitutional Appears: No Acute Distress Assessment and Plan - Assessment and Plan (Free Text) Assessment: Poor venous access Plan: Hep lock inserted in the L forearm. #24 angiocath used.
--- NOTE | 2017-01-31 16:51 | CP.PCM.DIS ---
<Padmini Krueger - Last Filed: 02/01/17 13:21> Provider - Provider Date of Admission: 01/30/17 00:39 Attending physician: Kev Mancia MD Primary care physician: Nuris Humphrey MD Time Spent in preparation of Discharge (in minutes): 35 Hospital Course - Lab Results Lab Results: Most Recent Lab Values WBC 7.2 10^3/ul (4.5-11.0) 01/31/17 06:30 RBC 4.12 10^6/uL (3.5-6.1) 01/31/17 06:30 Hgb 8.4 gm/dL (12.0-16.0) L 01/31/17 06:30 Hct 28.2 % (36.0-48.0) L 01/31/17 06:30 MCV 68.4 fL (80.0-105.0) L 01/31/17 06:30 MCH 20.4 pg (25.0-35.0) L 01/31/17 06:30 MCHC 29.8 g/dl (31.0-37.0) L 01/31/17 06:30 RDW 19.1 % (11.5-14.5) H 01/31/17 06:30 Plt Count 541 10^3/uL (120.0-450.0) H 01/31/17 06:30 MPV 9.7 fl (7.0-11.0) 01/31/17 06:30 Gran % 63.9 % (50.0-68.0) 01/30/17 12:00 Lymph % (Auto) 25.1 % (22.0-35.0) 01/30/17 12:00 Yancey % (Auto) 7.4 % (1.0-6.0) H 01/30/17 12:00 Eos % (Auto) 3.2 % (1.5-5.0) 01/30/17 12:00 Baso % (Auto) 0.4 % (0.0-3.0) 01/30/17 12:00 Gran # 4.73 (1.4-6.5) 01/30/17 12:00 Lymph # 1.9 (1.2-3.4) 01/30/17 12:00 Yancey # 0.6 (0.1-0.6) 01/30/17 12:00 Eos # 0.2 (0.0-0.7) 01/30/17 12:00 Baso # 0.03 K/mm3 (0.0-2.0) 01/30/17 12:00 PT 11.2 Seconds (9.9-11.8) 01/29/17 22:41 INR 1.04 (0.93-1.08) 01/29/17 22:41 APTT 26.7 Seconds (23.7-30.8) 01/29/17 22:41 D-Dimer, Quantitative 0.30 mg/L FEU (0-0.50) 01/29/17 22:41 Sodium 137 mmol/L (132-148) 01/31/17 06:30 Potassium 4.0 mmol/L (3.6-5.0) 01/31/17 06:30 Chloride 102 mmol/L (98-107) 01/31/17 06:30 Carbon Dioxide 27 mmol/L (21-33) 01/31/17 06:30 Anion Gap 12 (10-20) 01/31/17 06:30 BUN 11 mg/dL (7-21) 01/31/17 06:30 Creatinine 0.7 mg/dL (0.5-1.4) 01/31/17 06:30 Est GFR ( Amer) > 60 01/31/17 06:30 Est GFR (Non-Af Amer) > 60 01/31/17 06:30 Random Glucose 103 mg/dL (70-110) 01/31/17 06:30 Calcium 8.8 mg/dL (8.4-10.5) 01/31/17 06:30 Iron 435 ug/dL (45-180) H 01/30/17 12:00 TIBC 478 ug/dL (265-497) 01/30/17 12:00 % Saturation 91 % (20-55) H 01/30/17 12:00 Ferritin 5.1 ng/mL 01/30/17 12:00 Total Bilirubin 0.5 mg/dL (0.2-1.3) 01/29/17 22:41 AST 24 U/L (15-39) 01/29/17 22:41 ALT 35 U/L (7-56) 01/29/17 22:41 Alkaline Phosphatase 91 U/L (38-133) 01/29/17 22:41 Lactate Dehydrogenase 419 U/L (333-699) 01/29/17 22:41 Total Creatine Kinase 119 U/L (35-230) 01/29/17 22:41 Troponin I < 0.01 ng/mL 01/29/17 22:41 NT-Pro-B Natriuret Pep 133 pg/mL (0-450) 01/29/17 22:41 Total Protein 8.3 g/dL (5.8-8.3) 01/29/17 22:41 Albumin 4.4 g/dL (3.0-4.8) 01/29/17 22:41 Globulin 3.9 gm/dL 01/29/17 22:41 Albumin/Globulin Ratio 1.1 (1.1-1.8) 01/29/17 22:41 Vitamin B12 < 159 pg/mL (239-931) L 01/30/17 12:00 Folate 11.1 ng/mL 01/30/17 12:00 Thyroxine (T4) 7.4 ug/dL (5.5-11.0) 01/31/17 06:30 TSH 3rd Generation 9.02 mIU/mL (0.46-4.68) H 01/31/17 06:30 Blood Type B POSITIVE 01/30/17 00:30 Blood Type Confirm B POSITIVE 01/30/17 02:40 Antibody Screen Negative 01/30/17 00:30 Crossmatch See Detail 01/30/17 00:30 BBK History Checked No verified bt 01/30/17 00:30 - Hospital Course Hospital Course: 46 year old female with the history of hypothyroidism, iron deficiency anemia due to menorrhagia, essential hypertension who got admitted last night for evaluation of shortness of breath, tiredness, palpitations and lightheadedness due to symptomatic anemia. Symptomatic anemia secondary to menorrhagia. Patient was transfused 1 unit of prbc and venofer. Folate was within normal limits, b12 is decreased. Well Testing Operator was consulted. Patient is to follow up with obgyn as an outpatient. On CT scan showed multiple pulmonary nodules, 5mm nodule in RLL and 6 mm nodule in LLL, with mild heterogeneity of thyroid gland. Patient denies smoking however she reports history of passive smoking. Patient will require repeat CT scan in 3 months for surveillance. Pulm was consulted, they recommended sleep study as an outpatient. Patient TSH was elevated, patient states she stopped taking synthriod due to financial reason. Synthroid was started. Thyroid ultrasound and echo was completed. Patient is stable for discharge home, she is feeling better. Upon discharge patient will follow up with PMD, Dr Humphrey, Dr العلي, [facility] Former and Dr Khan. Discharge plan was discussed with patient she is in agreement. Discharge Exam - Head Exam Head Exam: ATRAUMATIC, NORMAL INSPECTION, NORMOCEPHALIC - Eye Exam Eye Exam: Normal appearance - ENT Exam ENT Exam: Mucous Membranes Moist - Respiratory Exam Respiratory Exam: Clear to PA & Lateral, NORMAL BREATHING PATTERN, UNREMARKABLE. absent: Rales, Rhonchi, Wheezes, Respiratory Distress - Cardiovascular Exam Cardiovascular Exam: REGULAR RHYTHM. absent: Tachycardia, Diastolic murmur, Systolic Murmur - GI/Abdominal Exam GI & Abdominal Exam: Normal Bowel Sounds, Soft, Unremarkable. absent: Distended , Firm, Guarding, Tenderness - Neurological Exam Neurological exam: Alert, Oriented x3 - Skin Skin Exam: Dry, Intact, Normal Color, Warm Discharge Plan - Discharge Medications Prescriptions: Cyanocobalamin [Vitamin B12 1000 mcg Tab] 1,000 mcg PO DAILY #30 tab Docusate [Colace] 100 mg PO TID PRN #20 cap PRN Reason: Constipation Ferrous Sulfate [Feosol] 324 mg PO DAILY #30 ect Folic Acid 1 mg PO DAILY #30 tab Levothyroxine Sodium 100 mcg PO DAILY #30 - Follow Up Plan Condition: GOOD Disposition: HOME/ ROUTINE Instructions: Chest Pain (DC), Heart Healthy Diet (DC), Iron Deficiency Anemia (DC) Additional Instructions: Patient is stable for discharge home - follow up with PMD, in 1 week - follow up with pulm in 2 weeks, will require repeat CT chest in 3 months to monitor lung nodule - follow up heme/onc in 2 weeks - follow up with HORTICULTURAL NURSERY ASSISTANT in 2 weeks - repeat TSH in 4 weeks New medications: - colase - vit B12 1000 mg daily - folate 1 mg daily continue: - levothyroxine 100mcg daily - feosol 324mg daily Referrals: Nuris Humphrey MD [Primary Care Provider] - Kylie العلي MD [Staff Provider] - Jarrell Khan MD [Staff Provider] - <Kev Mancia - Last Filed: 02/01/17 14:46> Provider - Provider Date of Admission: 01/30/17 00:39 Attending physician: Kev Mancia MD Primary care physician: Nuris Humphrey MD Hospital Course - Lab Results Lab Results: Most Recent Lab Values WBC 7.2 10^3/ul (4.5-11.0) 01/31/17 06:30 RBC 4.12 10^6/uL (3.5-6.1) 01/31/17 06:30 Hgb 8.4 gm/dL (12.0-16.0) L 01/31/17 06:30 Hct 28.2 % (36.0-48.0) L 01/31/17 06:30 MCV 68.4 fL (80.0-105.0) L 01/31/17 06:30 MCH 20.4 pg (25.0-35.0) L 01/31/17 06:30 MCHC 29.8 g/dl (31.0-37.0) L 01/31/17 06:30 RDW 19.1 % (11.5-14.5) H 01/31/17 06:30 Plt Count 541 10^3/uL (120.0-450.0) H 01/31/17 06:30 MPV 9.7 fl (7.0-11.0) 01/31/17 06:30 Gran % 63.9 % (50.0-68.0) 01/30/17 12:00 Lymph % (Auto) 25.1 % (22.0-35.0) 01/30/17 12:00 Yancey % (Auto) 7.4 % (1.0-6.0) H 01/30/17 12:00 Eos % (Auto) 3.2 % (1.5-5.0) 01/30/17 12:00 Baso % (Auto) 0.4 % (0.0-3.0) 01/30/17 12:00 Gran # 4.73 (1.4-6.5) 01/30/17 12:00 Lymph # 1.9 (1.2-3.4) 01/30/17 12:00 Yancey # 0.6 (0.1-0.6) 01/30/17 12:00 Eos # 0.2 (0.0-0.7) 01/30/17 12:00 Baso # 0.03 K/mm3 (0.0-2.0) 01/30/17 12:00 PT 11.2 Seconds (9.9-11.8) 01/29/17 22:41 INR 1.04 (0.93-1.08) 01/29/17 22:41 APTT 26.7 Seconds (23.7-30.8) 01/29/17 22:41 D-Dimer, Quantitative 0.30 mg/L FEU (0-0.50) 01/29/17 22:41 Sodium 137 mmol/L (132-148) 01/31/17 06:30 Potassium 4.0 mmol/L (3.6-5.0) 01/31/17 06:30 Chloride 102 mmol/L (98-107) 01/31/17 06:30 Carbon Dioxide 27 mmol/L (21-33) 01/31/17 06:30 Anion Gap 12 (10-20) 01/31/17 06:30 BUN 11 mg/dL (7-21) 01/31/17 06:30 Creatinine 0.7 mg/dL (0.5-1.4) 01/31/17 06:30 Est GFR ( Amer) > 60 01/31/17 06:30 Est GFR (Non-Af Amer) > 60 01/31/17 06:30 Random Glucose 103 mg/dL (70-110) 01/31/17 06:30 Calcium 8.8 mg/dL (8.4-10.5) 01/31/17 06:30 Iron 435 ug/dL (45-180) H 01/30/17 12:00 TIBC 478 ug/dL (265-497) 01/30/17 12:00 % Saturation 91 % (20-55) H 01/30/17 12:00 Ferritin 5.1 ng/mL 01/30/17 12:00 Total Bilirubin 0.5 mg/dL (0.2-1.3) 01/29/17 22:41 AST 24 U/L (15-39) 01/29/17 22:41 ALT 35 U/L (7-56) 01/29/17 22:41 Alkaline Phosphatase 91 U/L (38-133) 01/29/17 22:41 Lactate Dehydrogenase 419 U/L (333-699) 01/29/17 22:41 Total Creatine Kinase 119 U/L (35-230) 01/29/17 22:41 Troponin I < 0.01 ng/mL 01/29/17 22:41 NT-Pro-B Natriuret Pep 133 pg/mL (0-450) 01/29/17 22:41 Total Protein 8.3 g/dL (5.8-8.3) 01/29/17 22:41 Albumin 4.4 g/dL (3.0-4.8) 01/29/17 22:41 Globulin 3.9 gm/dL 01/29/17 22:41 Albumin/Globulin Ratio 1.1 (1.1-1.8) 01/29/17 22:41 Vitamin B12 < 159 pg/mL (239-931) L 01/30/17 12:00 Folate 11.1 ng/mL 01/30/17 12:00 Thyroxine (T4) 7.4 ug/dL (5.5-11.0) 01/31/17 06:30 TSH 3rd Generation 9.02 mIU/mL (0.46-4.68) H 01/31/17 06:30 Blood Type B POSITIVE 01/30/17 00:30 Blood Type Confirm B POSITIVE 01/30/17 02:40 Antibody Screen Negative 01/30/17 00:30 Crossmatch See Detail 01/30/17 00:30 BBK History Checked No verified bt 01/30/17 00:30 Attending/Attestation - Attestation I have personally seen and examined this patient.: Yes I have fully participated in the care of the patient.: Yes I have reviewed all pertinent clinical information, including history, physical exam and plan: Yes Notes (Text): 02/01/17 14:43 Attending note; Patient seen and examined with resident. Patient is a 46-year-old female admitted with anemia. Status post 1 unit PRBC transfusion. [facility] C[facility] bleeding/menorrhagia is a cause of anemia. Patient will follow-up with PANTRY COOK next week. Patient also got IV iron. Evaluated by power manager Dr. العلي. Continue by mouth ferrous sulfate, vitamin B-[address] chest showed pulmonary nodules. Evaluated by pulmonary . Needs repeat CT in 6 months. Atypical chest pain; evaluated by cardiology Dr. Gooden. Echocardiogram done. Upon discharge the patient will follow-up with PMD . Diagnosis; Anemia Menorrhagia Pulmonary nodule Obesity Hypothyroidism
[2017-01-31 17:31] VITALS: BP 170/93; PULSE 82
[2017-01-31 18:02] VITALS: RESP 20; TEMP 98.5
--- NOTE | 2017-01-31 21:26 | PN ---
DATE: 01/31/2017 REFERRING PHYSICIAN: Dr. Humphrey. SUBJECTIVE: She is out of bed to chair, being discharged home. No headache. No rhinitis. No nause a. No vomiting, diarrhea. No leg pain or leg swelling. OBJECTIVE: GENERAL: No acute distress. VITAL SIGNS: Temperature is 98, heart is 82, respiratory rate is 20, blood pressure 133/73. HEENT: Moist mucous membranes. Crowded airway. Mallampati score is 4. NECK: Supple. No JVD. LUNGS: Has a fair airflow with rhonchi. HEART: S1, S2. ABDOMEN: Soft, nontender. No organomegaly. EXTREMITIES: There is no edema. NEUROLOGIC: Awake, alert, follows simple command. MEDICATIONS: Reviewed. No new changes are reported. LABORATORY DATA: Shows hemoglobin 8.4, hematocrit 28.2, WBC 7.2, platelet is 541. Sodium 137, potas sium 4.0, chloride 102, bicarbonate 27, BUN 11, creatinine 0.7, glucose 103, calcium is 8.8. Had ech ocardiogram done, report is still pending. IMPRESSION AND PLAN: Symptomatic anemia requiring transfusion, obesity, hypertension, renal insuffic iency, hypothyroid, hypertension, lung nodule. The patient is being discharged home. Will need outp atient sleep study, gastric prophylaxis, hematology followup. Followup CAT scan in 6 months to 1 yea r to assure the stability of lung nodule. Informed patient and about followup CT and its imp ortance. The patient and family expressed understanding. Jarrell Khan MD cc: [phone] TT: 01/31/2017 21:26:27 Confirmation # [id number] Dictation # [id number] tn
--- NOTE | 2017-02-01 01:00 | CARD ---
APPROVED REPORT EXAM: Two-dimensional and M-mode echocardiogram with Doppler and color Doppler. 2D DIMENSIONS Left Atrium (2D)4.3 (1.6-4.0cm)IVSd1.2 (0.7-1.1cm) LVDd5.5 (3.9-5.9cm)PWd1.2 (0.7-1.1cm) LVDs2.9 (2.5-4.0cm)FS (%) 47.0 % LVEF (%)77.9 (>50%) M-Mode DIMENSIONS Left Atrium (MM)4.20 (2.5-4.0cm)Aortic Root2.70 (2.2-3.7cm) Aortic Cusp Exc.2.10 (1.5-2.0cm) Aortic Valve AoV Peak Idjhaond603.0cm/sAoV VTI30.7cmAO Peak GR.9mmHg LVOT Peak Omqscjkr26.8cm/sLVOT VTI20.50cmAO Mean GR.6mmHg Mitral Valve MV E Bakgxyzl566.0cm/sMV A Kwuskczq78.5cm/sE/A ratio1.4 TDI Lateral E' Peak V10.80cm/sMedial E' Peak V7.21cm/sE/Lateral E'10.4 E/Medial E'15.5 Tricuspid Valve TR Peak Bkaliqvw391ax/sRAP KHUCDRTQ60qzDtES Peak Gr.15mmHg [id number] LEFT VENTRICLE The left ventricle is normal size. There is borderline concentric left ventricular hypertrophy. The left ventricular function is normal. The left ventricular ejection fraction is within the normal range. There is normal LV segmental wall motion. The left ventricular diastolic function is normal. RIGHT VENTRICLE The right ventricle is normal size. There is normal right ventricular wall thickness. The right ventricular systolic function is normal. ATRIA The left atrium is borderline dilated. The right atrium size is normal. AORTIC VALVE The aortic valve is not well visualized. There is trace valvular aortic stenosis. MITRAL VALVE The mitral valve is mildly thickened. There is no mitral valve regurgitation noted. TRICUSPID VALVE There is no pulmonary hypertension. GREAT VESSELS The aortic root displays mild to moderate sclerocalcific changes of the aortic root. The IVC collapses <50% with inspiration. PERICARDIAL EFFUSION There is no pericardial effusion. <Conclusion> The left ventricle is normal size. There is borderline concentric left ventricular hypertrophy. The left ventricular function is normal. The left ventricular ejection fraction is within the normal range. There is normal LV segmental wall motion.
[2017-02-01] MEDS ORDERED: Levothyroxine 150 MCG TAB PO SCH (07:30)
--- NOTE | 2017-03-24 17:45 | US ---
HISTORY: nodules TECHNIQUE: Sonographic evaluation of the thyroid gland. COMPARISON: Chest CT from same day FINDINGS: RIGHT LOBE: Measures 5 x 2 x 2 cm. Heterogeneous echotexture Nodules: Nodule 1: 1.3 x 0.9 x 0.6 centimeter hypoechoic nodule in the lower pole. LEFT LOBE: Measures 5 x 1.5 x 1.4 cm. Heterogeneous echotexture. Nodules: None ISTHMUS: Measures 0.3 cm. Heterogeneous echotexture. Nodules: None OTHER FINDINGS: None . IMPRESSION: Right lower pole nodule. Heterogeneous echotexture in both parotid glands. Ultrasound cannot fully distinguish benign from malignant nodules therefore tissue diagnosis of the nodules which are 1 cm or greater should be considered. Please refer to guidelines below. Ultrasound feature of thyroid nodule * Recommendation Microcalcifications: Strongly consider FNA if = 1 cm Solid or coarse calcifications: Strongly consider FNA if = 1.5 cm Mixed solid and cystic or almost entirely cystic with solid mural component: Consider FNA if = 2 cm None of above, but substantial growth compared to prior US: Consider FNA Almost entirely cystic, none of above criteria, and no growth: FNA probably unnecessary Reference: Betty MC, Henry KAUR, Don STRICKLAND, et al. Management of Thyroid Nodules Detected at US: Society of Radiologists in Ultrasound Consensus Conference
== END 2017-01-31 19:00 | disposition home or self-care (01) ==
LOC: ED 22:06 → ERH 01-30 00:39 → 2RNO 01-30 03:12
PROVIDERS: ADMIT Internal Medicine; ATTEND Internal Medicine
DX: D50.0 Iron deficiency anemia secondary to blood loss (chronic) (principal); R07.89 Other chest pain; I10 Essential (primary) hypertension; E03.9 Hypothyroidism, unspecified; E53.8 Deficiency of other specified B group vitamins; E66.01 Morbid (severe) obesity due to excess calories; F55.8 Abuse of other non-psychoactive substances; Z68.42 Body mass index [BMI] 45.0-49.9, adult; N92.0 Excessive and frequent menstruation with regular cycle; N28.9 Disorder of kidney and ureter, unspecified; K59.00 Constipation, unspecified; Z77.22 Contact with and (suspected) exposure to environmental tobacco smoke (acute) (chronic); Z79.82 Long term (current) use of aspirin; Z82.49 Family history of ischemic heart disease and other diseases of the circulatory system; R40.2412 Glasgow coma scale score 13-15, at arrival to emergency department; R00.0 Tachycardia, unspecified; G47.33 Obstructive sleep apnea (adult) (pediatric); R91.8 Other nonspecific abnormal finding of lung field; M79.601 Pain in right arm
CPT/HCPCS: 36415; 36430; 71010; 71250; 76536; 80048; 80053; 82550; 82607; 82728; 82746; 83540; 83550; 83615; 83880; 84436; 84443; 84484; 85025; 85027; 85378; 85610; 85730; 86850; 86900; 86920; 93005; 93306; 93970; 96365; 96376; 99285; G0378; J1756; J7040; P9016

== ENCOUNTER 2018-01-13 20:48 | Emergency (ER) | payer MEDICAID ==
[2018-01-13 21:05] VITALS: BMI 47.4
[2018-01-13] MEDS ORDERED: Nitroglycerin 2% Ointment Foilpak UD TOP STA (21:25)
--- NOTE | 2018-01-13 21:32 | ED PDOC ---
Arrival/HPI - General Chief Complaint: Shortness Of Breath Time Seen by Provider: 01/13/18 20:50 Historian: Patient - History of Present Illness Narrative History of Present Illness (Text): 01/13/18 21:29 47 year old female, whose past medical history includes anemia, hypertension, and hypothyroidism, presents to the emergency department complaining of dyspnea on exertion for the past couple of months recently associated with chest like discomfort on exertion. Patient denies any fever, cough, chills, nausea, vomiting, diarrhea, urinary symptoms, back pain, neck pain, headache, dizziness , or any other complaints. PMD: Dr. Nuris Humphrey Diploma Pharmacy Technician: Dr. العلي Time/Duration: > month Symptom Onset: Gradual Symptom Course: Unchanged Activities at Onset: Light Context: Exertion Past Medical History - Provider Review Nursing Documentation Reviewed: Yes - Infectious Disease Hx of Infectious Diseases: None - Tetanus Immunization Tetanus Immunization: Unknown - Reproductive Menopause: No - Cardiac Hx Hypertension: Yes - Endocrine/Metabolic Hx Hypothyroidism: Yes - Musculoskeletal/Rheumatological Hx Falls: No - Psychiatric Hx Depression: No Hx Emotional Abuse: No Hx Physical Abuse: No Hx Substance Use: No - Suicidal Assessment Feels Threatened In Home Enviroment: No Family/Social History - Physician Review Nursing Documentation Reviewed: Yes Family/Social History: Hypertension (Father), CAD/[place] (Father) Smoking Status: Never Smoked Hx Alcohol Use: No Hx Substance Use: No Hx Substance Use Treatment: No Allergies/Home Meds Allergies/Adverse Reactions: Allergies No Known Allergies Allergy (Verified 03/14/14 22:37) Home Medications: Home Meds Medication Instructions Recorded Confirmed Losartan Potassium 50 mg PO DAILY 01/29/17 01/13/18 Metoprolol Tartrate 50 mg PO BID 01/29/17 01/13/18 Review of Systems - Physician Review All systems were reviewed & negative as marked: Yes - Review of Systems Constitutional: absent: Fevers, Other (Chills) Respiratory: absent: Cough Cardiovascular: Chest Pain, YANG Gastrointestinal: absent: Diarrhea, Nausea, Vomiting Genitourinary Female: absent: Dysuria, Frequency, Hematuria Musculoskeletal: absent: Back Pain, Neck Pain Neurological: absent: Headache, Dizziness Physical Exam Vital Signs Reviewed: Yes Vital Signs Temp Pulse Resp BP Pulse Ox 01/14/18 00:19 98.0 F 99 H 19 141/80 99 01/13/18 21:49 21 01/13/18 21:32 100 H 17 144/83 99 01/13/18 20:53 98.6 F 114 H 20 203/102 H 98 Temperature: Afebrile Blood Pressure: Normal Pulse: Regular Respiratory Rate: Normal Appearance: Positive for: Well-Appearing, Non-Toxic, Comfortable Pain Distress: None Mental Status: Positive for: Alert and Oriented X 3 - Systems Exam Head: Present: Atraumatic, Normocephalic Pupils: Present: PERRL Extroacular Muscles: Present: EOMI Conjunctiva: Present: Normal Mouth: Present: Moist Mucous Membranes Neck: Present: Normal Range of Motion Respiratory/Chest: Present: Clear to Auscultation, Good Air Exchange. No: Respiratory Distress, Accessory Muscle Use Cardiovascular: Present: Regular Rate and Rhythm, Normal S1, S2. No: Murmurs Abdomen: No: Tenderness, Distention, Peritoneal Signs Back: Present: Normal Inspection Upper Extremity: Present: Normal Inspection. No: Cyanosis, Edema Lower Extremity: Present: Normal Inspection. No: Edema Neurological: Present: GCS=15, CN II-XII Intact, Speech Normal Skin: Present: Warm, Dry, Normal Color. No: Rashes Psychiatric: Present: Alert, Oriented x 3, Normal Insight, Normal Concentration Medical Decision Making ED Course and Treatment: 01/13/18 21:35 Impression: 47 year old female presents complaining of dyspnea on exertion for the past couple of months recently associated with chest-like discomfort. Plan: -- EKG -- Labs -- Chest X-ray -- Nitro-Bid 2% Oint -- Reassess and disposition Prior Visits: Notes and results from previous visits were reviewed. Patient was last seen in the emergency department on 01/29/17 presents complaining of shortness of breath associated with exertional chest pain. Patient was admitted. Progress Notes: 01/13/18 21:41 EKG shows Sinus Tachycardia at 108 BPM with non-specific ST/T changes with no prior for comparison. Interpreted by me. 01/14/18 00:33 CXR Impression: As read by me, no acute process. 01/14/18 00:46 Case discussed with Community Outreach Specialist and Dr. Deyvi Blount who is aware and agrees with the plan. Patient will be admitted to hospitalist service. - Lab Interpretations Lab Results: 01/13/18 22:53 01/13/18 22:53 Lab Results 01/13/18 22:53: WBC 9.3 D, RBC 3.93, Hgb 7.8 L, Hct 27.1 L, MCV 69.0 L, MCH 19.8 L, MCHC 28.8 L, RDW 16.7 H, Plt Count 532 H, MPV 9.6 01/13/18 22:53: Sodium 143, Potassium 4.3, Chloride 104, Carbon Dioxide 26, Anion Gap 17, BUN 12, Creatinine 0.8, Est GFR ( Amer) > 60, Est GFR (Non- Af Amer) > 60, Random Glucose 134 H, Calcium 9.0, Total Bilirubin 0.1 L, AST 24 , ALT 33, Alkaline Phosphatase 73, Lactate Dehydrogenase 431, Total Creatine Kinase 100, Troponin I < 0.01, Total Protein 7.3, Albumin 4.1, Globulin 3.2, Albumin/Globulin Ratio 1.3 01/13/18 22:53: PT 13.0 H, INR 1.14 H, APTT 27.7, D-Dimer, Quantitative < 200 I have reviewed the lab results: Yes - RAD Interpretation Radiology Orders: 01/13/18 21:25 CHEST PORTABLE [RAD] Stat - EKG Interpretation Interpreted by ED Physician: Yes Type: 12 lead EKG - Medication Orders Current Medication Orders: Discontinued Medications Aspirin (Aspirin) 325 mg PO ONCE STA Stop: 01/14/18 00:05 Nitroglycerin (Nitro-Bid 2% Oint) 1 ea TOP ONCE STA Stop: 01/13/18 21:26 Last Admin: 01/13/18 22:55 Dose: Not Given Non-Admin Reason: Patient Refused - Scribe Statement The provider has reviewed the documentation as recorded by the Roselia Guerra Provider Scribe Attestation: All medical record entries made by the Roselia were at my direction and personally dictated by me. I have reviewed the chart and agree that the record accurately reflects my personal performance of the history, physical exam, medical decision making, and the department course for this patient. I have also personally directed, reviewed, and agree with the discharge instructions and disposition. Disposition/Present on Arrival - Present on Arrival Any Indicators Present on Arrival: No History of DVT/PE: No History of Uncontrolled Diabetes: No Urinary Catheter: No History of Decub. Ulcer: No History Surgical Site Infection Following: None - Disposition Have Diagnosis and Disposition been Completed?: Yes Diagnosis: Chest pain, Dyspnea on exertion Disposition: HOSPITALIZED Disposition Time: 00:40 Patient Plan: Observation Patient Problems: Current Active Problems Problem Status Onset Chest pain Acute Dyspnea on exertion Acute Condition: STABLE Discharge Instructions (ExitCare): Chest Pain (ED) Referrals: Nuris Humphrey MD [Primary Care Provider] - Follow up with primary Forms: [email or web address] (Persian)
[2018-01-13 23:13] LABS: HEMOGLOBIN 7.8 g/dL (12.0-16.0); MEAN CORPUSCULAR HEMOGLOBIN 19.8 pg (25.0-35.0); MEAN CORPUSCULAR HGB CONC 28.8 g/dl (31.0-37.0); MEAN PLATELET VOLUME 9.6 fl (7.0-11.0); RBC 3.93 10^6/uL (3.5-6.1); RED CELL DISTRIBUTION WIDTH 16.7 % (11.5-14.5); WHITE BLOOD COUNT 9.3 10^3/ul (4.5-11.0)
[2018-01-13 23:23] LABS: ALB/GLOB RATIO 1.3 (1.1-1.8); ALBUMIN 4.1 g/dL (3.0-4.8); ALT/SGPT 33 U/L (7-56); AST/SGOT 24 U/L (14-36); BLOOD UREA NITROGEN 12 mg/dL (7-21); GFR AFRICAN-AMERICAN > 60; GFR NON-AFRICAN AMERICAN > 60
[2018-01-13 23:34] LABS: TROPONIN I < 0.01 ng/mL
[2018-01-13 23:38] LABS: D DIMER < 200 ng/mL (0-243); INR 1.14 (0.93-1.08); PARTIAL THROMBOPLASTIN TIME 27.7 Seconds (25.1-36.5)
[2018-01-14] MEDS ORDERED: Albuterol-Ipratrop 3 mg / 0.5 (3 ml) UD IH PRN (01:20)
[2018-01-14] MEDS: Albuterol-Ipratrop 3 mg / 0.5 (3 ml) UD IH SCH ×4 (02:12→20:02)
[2018-01-14] MEDS ORDERED: Albuterol-Ipratrop 3 mg / 0.5 (3 ml) UD IH STA (02:45)
--- NOTE | 2018-01-14 02:49 | CP.PCM.HP ---
<Cole Childers - Last Filed: 01/14/18 02:58> History of Present Illness - History of Present Illness History of Present Illness: Medicine H&P: Dr. Laurel Blount CC: Shortness of breath HPI: 47 year old morbidly obese female with history of hypothyroidism, iron deficiency anemia due to menorrhagia, and essential hypertension presents for evaluation of shortness of breath. Patient states that for the past couple of years she has been having progressively worse shortness of breath and that she is awakened at night short of breath and coughing up phlegm several times a month. Patient states that she has never had a formal diagnosis of Asthma but has seen Dr. Khan in the past. At present patient denies any other symptoms besides shortness of breath, but apparently admitted to chest pain to ER physician Review of Systems: 12 point ROS obtained and negative except as per HPI Surgical History: Patient denies Medical History: Hypothyroidism, Iron deficiency anemia due to menorrhagia, Essential hypertension Allergies: NKDA Social History: Denies alcohol, tobacco, illicits Home Meds: Synthroid, feosol, metoprolol, losartan and B12 Family History: Hypertension, CAD PMD: Dr Nuris Humphrey Fall Internship: Dr العلي Fish Checker: Dr. Khan Present on Admission - Present on Admission Any Indicators Present on Admission: No Past Patient History - Infectious Disease Hx of Infectious Diseases: None - Tetanus Immunizations Tetanus Immunization: Unknown - Past Social History Smoking Status: Never Smoked - CARDIAC Hx Hypertension: Yes - ENDOCRINE/METABOLIC Hx Hypothyroidism: Yes - MUSCULOSKELETAL/RHEUMATOLOGICAL Hx Falls: No - PSYCHIATRIC Hx Depression: No Hx Emotional Abuse: No Hx Physical Abuse: No Hx Substance Use: No Meds Allergies/Adverse Reactions: Allergies Allergy/AdvReac Type Severity Reaction Status Date / Time No Known Allergies Allergy Verified 03/14/14 22:37 Physical Exam - Constitutional Appears: Well - Head Exam Head Exam: ATRAUMATIC, NORMAL INSPECTION, NORMOCEPHALIC - Eye Exam Eye Exam: EOMI, Normal appearance, PERRL Pupil Exam: NORMAL ACCOMODATION, PERRL - ENT Exam ENT Exam: Mucous Membranes Moist, Normal Exam - Neck Exam Neck exam: Positive for: Normal Inspection - Respiratory Exam Respiratory Exam: Clear to Auscultation Bilateral, NORMAL BREATHING PATTERN - Cardiovascular Exam Cardiovascular Exam: REGULAR RHYTHM - GI/Abdominal Exam GI & Abdominal Exam: Normal Bowel Sounds, Soft. absent: Tenderness - Extremities Exam Extremities exam: Positive for: normal inspection - Back Exam Back exam: NORMAL INSPECTION - Neurological Exam Neurological exam: Alert, CN II-XII Intact, Normal Gait, Oriented x3, Reflexes Normal - Psychiatric Exam Psychiatric exam: Normal Affect, Normal Mood - Skin Skin Exam: Dry, Intact, Normal Color, Warm Results - Vital Signs Recent Vital Signs: Last Vital Signs Temp 98.2 F 01/14/18 01:26 Pulse 97 H 01/14/18 01:26 Resp 18 01/14/18 01:26 BP 151/95 H 01/14/18 01:26 Pulse Ox 100 01/14/18 01:26 - Labs Result Diagrams: 01/13/18 22:53 01/13/18 22:53 Labs: Laboratory Results - last 24 hr 01/14/18 01:30 Phosphorus 3.9 Magnesium 2.1 Assessment & Plan - Assessment and Plan (Free Text) Assessment: 47 year old female with pertinent history of iron deficiency anemia due to menorrhagia and chronic shortness of breath presents with shortness of breath. Patient wheezing and visibly dyspneic on exam, has many night time awakenings. Patient's hemoglobin is 7.9 on admission; Trope is negative, EKG shows no ST elevations but shows tachycardia. Last iron studies in 2017 showed elevated iron but otherwise normal studies. Patient on feosol at home. Plan Chest Pain rule out ACS - EKG and Tropes series - Cardiology Consult: Dr. Dillon Shortness of Breath, 2/2 Asthma VS Anemia - Duonebs WATSON and PRN - Chest CT - past history of nodules; 5mm nodule in RLL and 6 mm nodule in LLL in 2017 - Consider Pulm Consult: Dr. Khan - See below Symptomatic Anemia 2/2 to Menorrhagia. - Feosol, Venofer - 1 U PRBC - Fe Studies, Folate, B12 - Hematology Consult: Dr. العلي History Constipation 2/2 Iron supplementation - Continue home medications History Hypothyroidism - Continue Synthroid History Hypertension - Continue Metoprolol and Diovan Morbid Obesity - Advised proper food hygiene GI/DVT Prophylaxis - Protonix/Lovenox <Carmelo Blount N - Last Filed: 01/14/18 04:24> Results - Vital Signs Recent Vital Signs: Last Vital Signs Temp 98.2 F 01/14/18 01:26 Pulse 97 H 01/14/18 01:26 Resp 18 01/14/18 01:26 BP 151/95 H 01/14/18 01:26 Pulse Ox 100 01/14/18 01:26 - Labs Result Diagrams: 01/13/18 22:53 01/13/18 22:53 Labs: Laboratory Results - last 24 hr 01/14/18 01/14/18 01:30 03:00 Phosphorus 3.9 Magnesium 2.1 NT-Pro-B Natriuret Pep 221
[2018-01-14] MEDS: Pantoprazole 40 mg EC Tab PO SCH (06:19)
[2018-01-14 07:15] LABS: HDL CHOLESTEROL 37 mg/dL (29-60)
[2018-01-14 07:26] LABS: LDL CHOLESTEROL 86 mg/dL (0-129)
[2018-01-14 07:28] LABS: TROPONIN I < 0.01 ng/mL
[2018-01-14 07:32] LABS: IRON 362 ug/dL (45-180)
[2018-01-14 07:41] LABS: % IRON SATURATION 80 % (20-55); TOTAL IRON BINDING CAPACITY 452 ug/dL (265-497)
[2018-01-14] MEDS: Levothyroxine 100 MCG TAB PO SCH (08:12)
--- NOTE | 2018-01-14 08:49 | RAD ---
PROCEDURE: CHEST RADIOGRAPH, 1 VIEW HISTORY: chest pain COMPARISON: 01/29/2017 FINDINGS: LUNGS: Clear. PLEURA: No pneumothorax or pleural fluid seen. CARDIOVASCULAR: Normal. OSSEOUS STRUCTURES: No significant abnormalities. VISUALIZED UPPER ABDOMEN: Normal. OTHER FINDINGS: None. IMPRESSION: No active disease.
[2018-01-14] MEDS: Enoxaparin 40 mg Syringe SC SCH (10:21)
[2018-01-14 10:46] LABS: BASO # 0.01 K/mm3 (0.0-2.0); BASO % 0.1 % (0.0-3.0); EOS # 0.2 (0.0-0.7); EOS % 2.7 % (1.5-5.0); GRAN # 4.62 (1.4-6.5); GRAN % 58.6 % (50.0-68.0); HEMOGLOBIN 7.4 g/dL (12.0-16.0); LYMPH # 2.5 (1.2-3.4); LYMPH % 31.1 % (22.0-35.0); MEAN CELL VOLUME 69.5 fl (80.0-105.0); MEAN CORPUSCULAR HEMOGLOBIN 20.3 pg (25.0-35.0); MEAN CORPUSCULAR HGB CONC 29.2 g/dl (31.0-37.0); MEAN PLATELET VOLUME 9.7 fl (7.0-11.0); MONO # 0.6 (0.1-0.6); MONO % 7.5 % (1.0-6.0); RBC 3.64 10^6/uL (3.5-6.1); RED CELL DISTRIBUTION WIDTH 16.9 % (11.5-14.5); WHITE BLOOD COUNT 7.9 10^3/ul (4.5-11.0)
[2018-01-14 10:57] LABS: ALB/GLOB RATIO 1.3 (1.1-1.8); ALT/SGPT 31 U/L (7-56); AST/SGOT 38 U/L (14-36); BLOOD UREA NITROGEN 11 mg/dL (7-21); CALCIUM 8.7 mg/dL (8.4-10.5); GFR AFRICAN-AMERICAN > 60; GFR NON-AFRICAN AMERICAN > 60
--- NOTE | 2018-01-14 11:18 | CARD ---
APPROVED REPORT EKG Measurement Heart [id number] [place] [id number] <Conclusion> Normal sinus rhythm Possible Left atrial enlargement Borderline ECG
--- NOTE | 2018-01-14 11:19 | CARD ---
APPROVED REPORT EKG Measurement Heart [id number] SD 154P51 [id number] <Conclusion> Sinus tachycardia Otherwise normal ECG
--- NOTE | 2018-01-14 11:37 | US ---
HISTORY: mennorrhgia COMPARISON: May 16, 2017 TECHNIQUE: Real-time transabdominal ultrasound examination of the pelvis was performed. Only transabdominal images are submitted. FINDINGS: UTERUS: Measures 11.6 x 6.0 x 7.5 cm. Uterus has grossly homogeneous echogenicity. Possible small fundal fibroid is not excluded although none was seen on prior study. ENDOMETRIUM: Endometrial complex is limited by this technique. Patient is presently undergoing menses. Endometrial complex measures between 9-18 millimeters. CERVIX: No appreciable focal cervical mass is seen on this transabdominal exam. Nabothian cyst and possible echogenic area were seen on the prior ultrasound exam transvaginal images. RIGHT OVARY: Measures 4.1 x 3 x 3.7 cm. No solid mass. Normal flow. LEFT OVARY: Left ovary was not adequately seen. No left adnexal masses are noted. FREE FLUID: No significant free fluid noted. OTHER FINDINGS: None. IMPRESSION: Extremely limited exam due to patient body habitus. Endometrial complex evaluation is extremely limited by this technique. No adnexal masses seen.
--- NOTE | 2018-01-14 12:00 | CP.PCM.DIS ---
Provider - Provider Date of Admission: 01/14/18 00:40 Attending physician: Nuris Humphrey MD Primary care physician: Nuris Humphrey MD Hospital Course - Lab Results Lab Results: Most Recent Lab Values WBC 7.9 10^3/ul (4.5-11.0) 01/14/18 07:30 RBC 3.64 10^6/uL (3.5-6.1) 01/14/18 07:30 Hgb 7.4 g/dL (12.0-16.0) L 01/14/18 07:30 Hct 25.3 % (36.0-48.0) L 01/14/18 07:30 MCV 69.5 fl (80.0-105.0) L 01/14/18 07:30 MCH 20.3 pg (25.0-35.0) L 01/14/18 07:30 MCHC 29.2 g/dl (31.0-37.0) L 01/14/18 07:30 RDW 16.9 % (11.5-14.5) H 01/14/18 07:30 Plt Count 502 10^3/uL (120.0-450.0) H 01/14/18 07:30 MPV 9.7 fl (7.0-11.0) 01/14/18 07:30 Gran % 58.6 % (50.0-68.0) 01/14/18 07:30 Lymph % (Auto) 31.1 % (22.0-35.0) 01/14/18 07:30 Osborne % (Auto) 7.5 % (1.0-6.0) H 01/14/18 07:30 Eos % (Auto) 2.7 % (1.5-5.0) 01/14/18 07:30 Baso % (Auto) 0.1 % (0.0-3.0) 01/14/18 07:30 Gran # 4.62 (1.4-6.5) 01/14/18 07:30 Lymph # (Auto) 2.5 (1.2-3.4) 01/14/18 07:30 Osborne # (Auto) 0.6 (0.1-0.6) 01/14/18 07:30 Eos # (Auto) 0.2 (0.0-0.7) 01/14/18 07:30 Baso # (Auto) 0.01 K/mm3 (0.0-2.0) 01/14/18 07:30 PT 13.0 SECONDS (9.4-12.5) H 01/13/18 22:53 INR 1.14 (0.93-1.08) H 01/13/18 22:53 APTT 27.7 Seconds (25.1-36.5) 01/13/18 22:53 D-Dimer, Quantitative < 200 ng/mL (0-243) 01/13/18 22:53 Sodium 140 mmol/L (132-148) 01/14/18 06:00 Potassium 3.9 mmol/L (3.6-5.0) 01/14/18 06:00 Chloride 105 mmol/L (98-107) 01/14/18 06:00 Carbon Dioxide 24 mmol/L (21-33) 01/14/18 06:00 Anion Gap 15 (10-20) 01/14/18 06:00 BUN 11 mg/dL (7-21) 01/14/18 06:00 Creatinine 0.7 mg/dl (0.7-1.2) 01/14/18 06:00 Est GFR ( Amer) > 60 01/14/18 06:00 Est GFR (Non-Af Amer) > 60 01/14/18 06:00 Random Glucose 95 mg/dL (70-110) 01/14/18 06:00 Calcium 8.7 mg/dL (8.4-10.5) 01/14/18 06:00 Phosphorus 4.3 mg/dL (2.5-4.5) 01/14/18 06:00 Magnesium 2.0 mg/dL (1.7-2.2) 01/14/18 06:00 Iron 362 ug/dL (45-180) H 01/14/18 06:00 TIBC 452 ug/dL (265-497) 01/14/18 06:00 % Saturation 80 % (20-55) H 01/14/18 06:00 Total Bilirubin 0.2 mg/dL (0.2-1.3) 01/14/18 06:00 AST 38 U/L (14-36) H D 01/14/18 06:00 ALT 31 U/L (7-56) 01/14/18 06:00 Alkaline Phosphatase 73 U/L (38-126) 01/14/18 06:00 Lactate Dehydrogenase 372 U/L (333-699) 01/14/18 06:00 Total Creatine Kinase 86 U/L (35-230) 01/14/18 06:00 Troponin I < 0.01 ng/mL 01/14/18 06:00 NT-Pro-B Natriuret Pep 221 pg/mL (0-450) 01/14/18 03:00 Total Protein 7.0 g/dL (5.8-8.3) 01/14/18 06:00 Albumin 4.0 g/dL (3.0-4.8) 01/14/18 06:00 Globulin 3.0 gm/dL 01/14/18 06:00 Albumin/Globulin Ratio 1.3 (1.1-1.8) 01/14/18 06:00 Triglycerides 82 mg/dL (35-160) 01/14/18 06:00 Cholesterol 144 mg/dL (130-200) 01/14/18 06:00 LDL Cholesterol Direct 86 mg/dL (0-129) 01/14/18 06:00 HDL Cholesterol 37 mg/dL (29-60) 01/14/18 06:00 TSH 3rd Generation 6.38 mIU/mL (0.46-4.68) H 01/14/18 06:00 Blood Type B POSITIVE 01/14/18 02:51 Antibody Screen Negative 01/14/18 02:51 Crossmatch See Detail 01/14/18 02:51 BBK History Checked Patient has bt 01/14/18 02:51 Discharge Exam - Head Exam Head Exam: ATRAUMATIC, NORMAL INSPECTION, NORMOCEPHALIC Discharge Plan - Discharge Medications Prescriptions: Albuterol Sulfate [Ventolin Hfa] 2 puff IH Q12H PRN #1 inhaler PRN Reason: Wheezing - Follow Up Plan Condition: STABLE Disposition: HOME/ ROUTINE Referrals: Nuris Humphrey MD [Primary Care Provider] -
[2018-01-14 13:48] LABS: FERRITIN 4.5 ng/mL
--- NOTE | 2018-01-14 14:38 | CT ---
PROCEDURE: CT Chest without contrast HISTORY: Past Hx of Nodules COMPARISON: 01/30/2017 TECHNIQUE: Contiguous axial images were obtained through the chest without intravenous contrast enhancement. Sagittal and coronal reconstructions were performed. Radiation dose (DLP): 905 mGy-cm. This CT exam was performed using one or more of the following dose reduction techniques: Automated exposure control, adjustment of the mA and/or kV according to patient size, and/or use of iterative reconstruction technique. FINDINGS: LUNGS: Mild chronic interstitial and emphysematous changes are appreciated without segmental infiltrate. There is some mild linear peribronchial thickening in the medial right middle lobe and some mild subsegmental atelectasis seen in the lingula. Minor scarring is seen elsewhere. Minor mosaic non geographic ground-glass is appreciated. A previously identified lung nodule in the medial superior segment of the right lower lobe on axial image 62 is not as well appreciated on this present examination. There is a smoothly marginated left lower lobe pulmonary nodule seen on present examination image 78 series 3 and noted on image 70 of the prior study. This measures 4.5 x 3.8 millimeters. Utilizing similar measurements this measures under 5 millimeters on the prior study. No new nodules are appreciated. MEDIASTINUM: Stable thoracic aorta without new aneurysmal dilatation. Heart size is also stable. No pericardial effusion is seen. No appreciable vascular congestion on this noncontrast exam. No appreciable new mediastinal or hilar lymphadenopathy. A few tiny scattered shotty mediastinal lymph nodes and some minor stable soft tissue in the anterior mediastinum are noted PLEURA: No pleural fluid. No pneumothorax. BONES: Bony structures are unchanged. Degenerative changes are seen in the spine. UPPER ABDOMEN: Images of the upper abdomen are grossly unchanged and unremarkable. No ascites is seen. Adrenal glands are normal in size OTHER FINDINGS: Sternum is intact. Thyroid gland is stable. IMPRESSION: Stable or slightly decreased left lower lobe pulmonary nodule measuring approximately 4 millimeters in aggregate. Previously noted medial right lower lobe pulmonary nodule is not as well-seen on the present examination. No new nodules or infiltrates are seen. Mild interstitial changes. No new adenopathy. According to recent Fleischner guidelines, 4 millimeter nodules require no additional imaging workup in a low risk patient.
[2018-01-14 16:18] LABS: TROPONIN I < 0.01 ng/mL
--- NOTE | 2018-01-14 19:44 | CARD ---
APPROVED REPORT EKG Measurement Heart [id number] <Conclusion> Normal sinus rhythm Normal ECG
[2018-01-14 21:46] LABS: BASO # 0.01 K/mm3 (0.0-2.0); BASO % 0.1 % (0.0-3.0); EOS # 0.2 (0.0-0.7); EOS % 2.8 % (1.5-5.0); GRAN # 5.11 (1.4-6.5); GRAN % 59.7 % (50.0-68.0); HEMOGLOBIN 9.5 g/dL (12.0-16.0); LYMPH # 2.7 (1.2-3.4); LYMPH % 31.2 % (22.0-35.0); MEAN CELL VOLUME 71.8 fl (80.0-105.0); MEAN CORPUSCULAR HEMOGLOBIN 21.6 pg (25.0-35.0); MEAN CORPUSCULAR HGB CONC 30.1 g/dl (31.0-37.0); MEAN PLATELET VOLUME 9.4 fl (7.0-11.0); MONO # 0.5 (0.1-0.6); MONO % 6.2 % (1.0-6.0); RBC 4.4 10^6/uL (3.5-6.1); WHITE BLOOD COUNT 8.6 10^3/ul (4.5-11.0)
--- NOTE | 2018-01-14 23:54 | CP.PCM.PCO ---
Assessment & Plan - Assessment and Plan (Free Text) Assessment: severe iron deficiency anemia, likely due to menorragia. recommend- stool occult, IV iron, gynec eval. detail note will be dictated.
[2018-01-15] MEDS: Albuterol-Ipratrop 3 mg / 0.5 (3 ml) UD IH SCH ×3 (04:08→13:12)
[2018-01-15] MEDS: Pantoprazole 40 mg EC Tab PO SCH (05:12)
[2018-01-15 06:04] VITALS: O2SAT 98
[2018-01-15 07:21] LABS: BASO # 0.02 K/mm3 (0.0-2.0); BASO % 0.2 % (0.0-3.0); EOS # 0.3 (0.0-0.7); EOS % 3.1 % (1.5-5.0); GRAN # 6.07 (1.4-6.5); GRAN % 61.2 % (50.0-68.0); HEMOGLOBIN 9.4 g/dL (12.0-16.0); LYMPH # 2.8 (1.2-3.4); LYMPH % 28.2 % (22.0-35.0); MEAN CELL VOLUME 71.8 fl (80.0-105.0); MEAN CORPUSCULAR HGB CONC 29.3 g/dl (31.0-37.0); MEAN PLATELET VOLUME 9.8 fl (7.0-11.0); MONO # 0.7 (0.1-0.6); MONO % 7.3 % (1.0-6.0); RBC 4.47 10^6/uL (3.5-6.1); RED CELL DISTRIBUTION WIDTH 17.9 % (11.5-14.5); WHITE BLOOD COUNT 9.9 10^3/ul (4.5-11.0)
[2018-01-15 07:45] LABS: ALB/GLOB RATIO 1.2 (1.1-1.8); ALBUMIN 3.9 g/dL (3.0-4.8); ALT/SGPT 31 U/L (7-56); AST/SGOT 28 U/L (14-36); BLOOD UREA NITROGEN 11 mg/dL (7-21); CALCIUM 8.7 mg/dL (8.4-10.5); GFR AFRICAN-AMERICAN > 60; GFR NON-AFRICAN AMERICAN > 60
[2018-01-15] MEDS: Levothyroxine 100 MCG TAB PO SCH (08:08)
--- NOTE | 2018-01-15 08:44 | CP.PCM.PN ---
Subjective - Date & Time of Evaluation Date of Evaluation: 01/15/18 Time of Evaluation: 07:10 - Subjective Subjective: Lying in bed, no distress,no shortness of breath Reason for consult: Cardiac evaluation, hypertension, shortness of breath Seen and examined by me and Dr. Gooden Objective - Vital Signs/Intake and Output Vital Signs (last 24 hours): Temp Pulse Resp BP Pulse Ox 98.3 F 102 H 20 151/95 H 98 01/15/18 06:00 01/15/18 06:00 01/15/18 06:00 01/15/18 06:00 01/15/18 06:00 Intake and Output: 01/15/18 01/15/18 06:59 18:59 Intake Total 1155 Balance 1155 - Medications Medications: Current Medications Albuterol/Ipratropium (Duoneb 3 Mg/0.5 Mg (3 Ml) Ud) 3 ml IH Q2H PRN PRN Reason: Shortness of Breath Albuterol/Ipratropium (Duoneb 3 Mg/0.5 Mg (3 Ml) Ud) 3 ml IH [id number] [facility] Last Admin: 01/15/18 08:03 Dose: 3 ml Cyanocobalamin (Vitamin B12 1000 Mcg Tab) 1,000 mcg PO DAILY [facility] Last Admin: 01/14/18 10:19 Dose: 1,000 mcg Docusate Sodium (Colace) 100 mg PO TID PRN PRN Reason: Constipation Last Admin: 01/14/18 21:21 Dose: 100 mg Enoxaparin Sodium (Lovenox) 40 mg SC DAILY [facility] PRN Reason: Protocol Last Admin: 01/14/18 10:21 Dose: 40 mg Ferrous Sulfate (Feosol) 324 mg PO DAILY [facility] Folic Acid (Folic Acid) 1 mg PO DAILY [facility] Last Admin: 01/14/18 10:19 Dose: 1 mg Levothyroxine Sodium (Synthroid) 100 mcg PO ACB [facility] Last Admin: 01/15/18 08:08 Dose: 100 mcg Losartan Potassium (Cozaar) 50 mg PO DAILY [facility] Last Admin: 01/14/18 10:19 Dose: 50 mg Metoprolol Tartrate (Lopressor) 50 mg PO BID [facility] Last Admin: 01/14/18 17:42 Dose: 50 mg Pantoprazole Sodium (Protonix Ec Tab) 40 mg PO 0600 [facility] Last Admin: 01/15/18 05:12 Dose: 40 mg - Labs Labs: 01/15/18 06:30 01/15/18 06:30 PT 13.0 SECONDS (9.4-12.5) H 01/13/18 22:53 INR 1.14 (0.93-1.08) H 01/13/18 22:53 APTT 27.7 Seconds (25.1-36.5) 01/13/18 22:53 - Constitutional Appears: No Acute Distress - Head Exam Head Exam: NORMAL INSPECTION - Eye Exam Eye Exam: Normal appearance - ENT Exam ENT Exam: Mucous Membranes Moist - Respiratory Exam Respiratory Exam: Clear to Ausculation Bilateral, NORMAL BREATHING PATTERN - Cardiovascular Exam Cardiovascular Exam: REGULAR RHYTHM, +S1, +S2 - GI/Abdominal Exam GI & Abdominal Exam: Soft, Normal Bowel Sounds - Extremities Exam Extremities Exam: Normal Capillary Refill - Neurological Exam Neurological Exam: Alert, Awake, Oriented x3 - Psychiatric Exam Psychiatric exam: Normal Affect, Normal Mood - Skin Skin Exam: Intact, Normal Color, Warm Assessment and Plan - Assessment and Plan (Free Text) Assessment: A 47 year old female, obese with history of hypertension, hypothyroidism,iron deficiency anemia due to menorrhagia. came in to ER due to shortness of breath Plan: Stable cardiac status Cardiac standpoint, can go home Controlled blood pressure and heart rate Continue current medications Continue current treatment Being follow up by Hematology Lifestyle modification Will follow up Plan and treatment discussed with Dr. Gooden
[2018-01-15] MEDS: Enoxaparin 40 mg Syringe SC SCH (09:44)
[2018-01-15 11:56] VITALS: BP 134/83; PULSE 82; RESP 16; TEMP 98.4
--- NOTE | 2018-01-15 14:20 | CP.PCM.DIS ---
<Alvin Morales - Last Filed: 01/15/18 17:06> Provider - Provider Date of Admission: 01/14/18 00:40 Attending physician: Yordan Bell MD Primary care physician: Nuris Humphrey MD Consults: Cardio: Santana Heme-onc: Severinao Time Spent in preparation of Discharge (in minutes): 45 Diagnosis - Discharge Diagnosis (1) Hypothyroid Status: Chronic Priority: Medium (2) Anemia requiring transfusions Status: Acute Priority: High Comment: chronically anemic (3) Dyspnea on exertion Status: Resolved Priority: High (4) Hypertension Status: Chronic Priority: Medium Hospital Course - Lab Results Lab Results: Most Recent Lab Values WBC 9.9 10^3/ul (4.5-11.0) 01/15/18 06:30 RBC 4.47 10^6/uL (3.5-6.1) 01/15/18 06:30 Hgb 9.4 g/dL (12.0-16.0) L 01/15/18 06:30 Hct 32.1 % (36.0-48.0) L 01/15/18 06:30 MCV 71.8 fl (80.0-105.0) L 01/15/18 06:30 MCH 21.0 pg (25.0-35.0) L 01/15/18 06:30 MCHC 29.3 g/dl (31.0-37.0) L 01/15/18 06:30 RDW 17.9 % (11.5-14.5) H 01/15/18 06:30 Plt Count 494 10^3/uL (120.0-450.0) H 01/15/18 06:30 MPV 9.8 fl (7.0-11.0) 01/15/18 06:30 Gran % 61.2 % (50.0-68.0) 01/15/18 06:30 Lymph % (Auto) 28.2 % (22.0-35.0) 01/15/18 06:30 Kern % (Auto) 7.3 % (1.0-6.0) H 01/15/18 06:30 Eos % (Auto) 3.1 % (1.5-5.0) 01/15/18 06:30 Baso % (Auto) 0.2 % (0.0-3.0) 01/15/18 06:30 Gran # 6.07 (1.4-6.5) 01/15/18 06:30 Lymph # (Auto) 2.8 (1.2-3.4) 01/15/18 06:30 Kern # (Auto) 0.7 (0.1-0.6) H 01/15/18 06:30 Eos # (Auto) 0.3 (0.0-0.7) 01/15/18 06:30 Baso # (Auto) 0.02 K/mm3 (0.0-2.0) 01/15/18 06:30 PT 13.0 SECONDS (9.4-12.5) H 01/13/18 22:53 INR 1.14 (0.93-1.08) H 01/13/18 22:53 APTT 27.7 Seconds (25.1-36.5) 01/13/18 22:53 D-Dimer, Quantitative < 200 ng/mL (0-243) 01/13/18 22:53 Sodium 140 mmol/L (132-148) 01/15/18 06:30 Potassium 4.2 mmol/L (3.6-5.0) 01/15/18 06:30 Chloride 103 mmol/L (98-107) 01/15/18 06:30 Carbon Dioxide 27 mmol/L (21-33) 01/15/18 06:30 Anion Gap 14 (10-20) 01/15/18 06:30 BUN 11 mg/dL (7-21) 01/15/18 06:30 Creatinine 0.7 mg/dl (0.7-1.2) 01/15/18 06:30 Est GFR ( Amer) > 60 01/15/18 06:30 Est GFR (Non-Af Amer) > 60 01/15/18 06:30 Random Glucose 99 mg/dL (70-110) 01/15/18 06:30 Hemoglobin A1c 6.6 % (4.2-6.5) H 01/15/18 06:30 Calcium 8.7 mg/dL (8.4-10.5) 01/15/18 06:30 Phosphorus 4.0 mg/dL (2.5-4.5) 01/15/18 06:30 Magnesium 2.1 mg/dL (1.7-2.2) 01/15/18 06:30 Iron 362 ug/dL (45-180) H 01/14/18 06:00 TIBC 452 ug/dL (265-497) 01/14/18 06:00 % Saturation 80 % (20-55) H 01/14/18 06:00 Ferritin 4.5 ng/mL 01/14/18 06:00 Total Bilirubin 0.3 mg/dL (0.2-1.3) 01/15/18 06:30 AST 28 U/L (14-36) 01/15/18 06:30 ALT 31 U/L (7-56) 01/15/18 06:30 Alkaline Phosphatase 70 U/L (38-126) 01/15/18 06:30 Lactate Dehydrogenase 352 U/L (333-699) 01/14/18 15:50 Total Creatine Kinase 77 U/L (35-230) 01/14/18 15:50 Troponin I < 0.01 ng/mL 01/14/18 15:50 NT-Pro-B Natriuret Pep 221 pg/mL (0-450) 01/14/18 03:00 Total Protein 7.0 g/dL (5.8-8.3) 01/15/18 06:30 Albumin 3.9 g/dL (3.0-4.8) 01/15/18 06:30 Globulin 3.2 gm/dL 01/15/18 06:30 Albumin/Globulin Ratio 1.2 (1.1-1.8) 01/15/18 06:30 Triglycerides 82 mg/dL (35-160) 01/14/18 06:00 Cholesterol 144 mg/dL (130-200) 01/14/18 06:00 LDL Cholesterol Direct 86 mg/dL (0-129) 01/14/18 06:00 HDL Cholesterol 37 mg/dL (29-60) 01/14/18 06:00 TSH 3rd Generation 8.56 mIU/mL (0.46-4.68) H 01/15/18 06:30 FSH 3rd Generation 3.5 mIU/mL 01/14/18 06:00 Luteinizing Hormone 5.2 mIU/mL 01/14/18 06:00 Blood Type B POSITIVE 01/14/18 02:51 Antibody Screen Negative 01/14/18 02:51 Crossmatch See Detail 01/14/18 02:51 BBK History Checked Patient has bt 01/14/18 02:51 - Hospital Course Hospital Course: This is a 47 yo F with PMH of hypothyroidism, iron deficiency anemia due to menorrhagia, morbid obesity, and essential hypertension presents for evaluation of shortness of breath. While here, the patient was seen by Heme-onc and Cardio. As per Cardio, patient was cleared for discharge, can obtain an Echo as an outpatient. As per Heme-onc, patient received IV iron, which improved substantially on her repeat Iron panel. She was also transfused 2 units of packed RBCs due to a Hgb of 7.4, which subsequently improved to 9.5. Her hgb held steady after transfusion, and her shortness of breath and fatigue resolved after transfusion. No acute complaints on exam today. Reports feeling better overall. No acute events overnight. Patient was instructed to follow up with her PMD (Dr. Humphrey ) within 1 week of discharge, to follow up with her OB-[employer] D[employer] Equipment Operator for her heavy periods , and to discuss with her PMD the possibility of following up with GI regarding possible GI loss of blood, possible Colonoscopy. She was also instructed to resume all home medications as previously prescribed. She expressed understanding and agreement with these instructions. She was then discharged. Patient seen and examined with attending, Dr. Bell. Discharge Exam - Head Exam Head Exam: NORMAL INSPECTION - Additional Findings Additional findings: - Constitutional Appears: Well, No acute distress, Non-toxic - Head Exam Head Exam: ATRAUMATIC, NORMAL INSPECTION, NORMOCEPHALIC - Eye Exam Eye Exam: EOMI, Normal appearance - ENT Exam ENT Exam: Mucous Membranes Moist, Normal Exam - Neck Exam Neck exam: Positive for: Normal Inspection - Respiratory Exam Respiratory Exam: Clear to Auscultation Bilateral, NORMAL BREATHING PATTERN - Cardiovascular Exam Cardiovascular Exam: RRR, +S1/2. Absent: Irregular rhythm, JVD - GI/Abdominal Exam GI & Abdominal Exam: Normal Bowel Sounds, Soft. absent: Tenderness - Extremities Exam Extremities exam: Positive for: normal inspection, intact distal pulses (+2 radials and dorsalis pedis bilaterally). Absent: Pedal edema - Neurological Exam Neurological exam: Awake and alert, following all commands appropriately, moving all extremities spontaneously - Psychiatric Exam Psychiatric exam: Normal Affect, Normal Mood - Skin Skin Exam: Dry, Intact, Normal Color, Warm Discharge Plan - Discharge Medications Prescriptions: Albuterol Sulfate [Ventolin Hfa] 2 puff IH Q12H PRN #1 inhaler PRN Reason: Wheezing - Follow Up Plan Condition: STABLE Disposition: HOME/ ROUTINE Instructions: Anemia Caused by Low Iron, Anemia Caused by Low Iron, Adult (DC) , Gastrointestinal Bleeding (DC), Hypothyroidism (Underactive Thyroid) (DC), Heavy Periods (DC) Additional Instructions: -Please resume all home medications as previously prescribed. -Please follow up with your PMD (Dr. Humphrey) within 1 week of discharge. -Testing of your thyroid while inpatient was suggestive of still too-low thyroid levels, please follow up with your PMD for additional thyroid testing and possible adjustment of your synthroid regimen -Please follow up with your OB-[employer] D[employer] Operator for your heavy periods. -Please follow up with your PMD and discuss following up with GI for possible colonoscopy to rule out any blood loss from GI tract given your recurrent anemia. -Please return to a hospital if you experience worsening or new concerning symptoms. Referrals: Nuris Humphrey MD [Primary Care Provider] - <Yordan Bell - Last Filed: 01/15/18 17:38> Provider - Provider Date of Admission: 01/14/18 00:40 Attending physician: Yordan Bell MD Primary care physician: Nuris Humphrey MD Hospital Course - Lab Results Lab Results: Most Recent Lab Values WBC 9.9 10^3/ul (4.5-11.0) 01/15/18 06:30 RBC 4.47 10^6/uL (3.5-6.1) 01/15/18 06:30 Hgb 9.4 g/dL (12.0-16.0) L 01/15/18 06:30 Hct 32.1 % (36.0-48.0) L 01/15/18 06:30 MCV 71.8 fl (80.0-105.0) L 01/15/18 06:30 MCH 21.0 pg (25.0-35.0) L 01/15/18 06:30 MCHC 29.3 g/dl (31.0-37.0) L 01/15/18 06:30 RDW 17.9 % (11.5-14.5) H 01/15/18 06:30 Plt Count 494 10^3/uL (120.0-450.0) H 01/15/18 06:30 MPV 9.8 fl (7.0-11.0) 01/15/18 06:30 Gran % 61.2 % (50.0-68.0) 01/15/18 06:30 Lymph % (Auto) 28.2 % (22.0-35.0) 01/15/18 06:30 Kern % (Auto) 7.3 % (1.0-6.0) H 01/15/18 06:30 Eos % (Auto) 3.1 % (1.5-5.0) 01/15/18 06:30 Baso % (Auto) 0.2 % (0.0-3.0) 01/15/18 06:30 Gran # 6.07 (1.4-6.5) 01/15/18 06:30 Lymph # (Auto) 2.8 (1.2-3.4) 01/15/18 06:30 Kern # (Auto) 0.7 (0.1-0.6) H 01/15/18 06:30 Eos # (Auto) 0.3 (0.0-0.7) 01/15/18 06:30 Baso # (Auto) 0.02 K/mm3 (0.0-2.0) 01/15/18 06:30 PT 13.0 SECONDS (9.4-12.5) H 01/13/18 22:53 INR 1.14 (0.93-1.08) H 01/13/18 22:53 APTT 27.7 Seconds (25.1-36.5) 01/13/18 22:53 D-Dimer, Quantitative < 200 ng/mL (0-243) 01/13/18 22:53 Sodium 140 mmol/L (132-148) 01/15/18 06:30 Potassium 4.2 mmol/L (3.6-5.0) 01/15/18 06:30 Chloride 103 mmol/L (98-107) 01/15/18 06:30 Carbon Dioxide 27 mmol/L (21-33) 01/15/18 06:30 Anion Gap 14 (10-20) 01/15/18 06:30 BUN 11 mg/dL (7-21) 01/15/18 06:30 Creatinine 0.7 mg/dl (0.7-1.2) 01/15/18 06:30 Est GFR ( Amer) > 60 01/15/18 06:30 Est GFR (Non-Af Amer) > 60 01/15/18 06:30 Random Glucose 99 mg/dL (70-110) 01/15/18 06:30 Hemoglobin A1c 6.6 % (4.2-6.5) H 01/15/18 06:30 Calcium 8.7 mg/dL (8.4-10.5) 01/15/18 06:30 Phosphorus 4.0 mg/dL (2.5-4.5) 01/15/18 06:30 Magnesium 2.1 mg/dL (1.7-2.2) 01/15/18 06:30 Iron 362 ug/dL (45-180) H 01/14/18 06:00 TIBC 452 ug/dL (265-497) 01/14/18 06:00 % Saturation 80 % (20-55) H 01/14/18 06:00 Ferritin 4.5 ng/mL 01/14/18 06:00 Total Bilirubin 0.3 mg/dL (0.2-1.3) 01/15/18 06:30 AST 28 U/L (14-36) 01/15/18 06:30 ALT 31 U/L (7-56) 01/15/18 06:30 Alkaline Phosphatase 70 U/L (38-126) 01/15/18 06:30 Lactate Dehydrogenase 352 U/L (333-699) 01/14/18 15:50 Total Creatine Kinase 77 U/L (35-230) 01/14/18 15:50 Troponin I < 0.01 ng/mL 01/14/18 15:50 NT-Pro-B Natriuret Pep 221 pg/mL (0-450) 01/14/18 03:00 Total Protein 7.0 g/dL (5.8-8.3) 01/15/18 06:30 Albumin 3.9 g/dL (3.0-4.8) 01/15/18 06:30 Globulin 3.2 gm/dL 01/15/18 06:30 Albumin/Globulin Ratio 1.2 (1.1-1.8) 01/15/18 06:30 Triglycerides 82 mg/dL (35-160) 01/14/18 06:00 Cholesterol 144 mg/dL (130-200) 01/14/18 06:00 LDL Cholesterol Direct 86 mg/dL (0-129) 01/14/18 06:00 HDL Cholesterol 37 mg/dL (29-60) 01/14/18 06:00 TSH 3rd Generation 8.56 mIU/mL (0.46-4.68) H 01/15/18 06:30 FSH 3rd Generation 3.5 mIU/mL 01/14/18 06:00 Luteinizing Hormone 5.2 mIU/mL 01/14/18 06:00 Blood Type B POSITIVE 01/14/18 02:51 Antibody Screen Negative 01/14/18 02:51 Crossmatch See Detail 01/14/18 02:51 BBK History Checked Patient has bt 01/14/18 02:51 Attending/Attestation - Attestation I have personally seen and examined this patient.: Yes I have fully participated in the care of the patient.: Yes I have reviewed all pertinent clinical information, including history, physical exam and plan: Yes Notes (Text): 01/15/18 17:32 47 year old female with past medical history of hypothyroidism, iron deficiency anemia, menorhhagia, and hypertension who presented with complaint of chest pain and shortness of breath. She was found to have anemia and given iv iron and blood transfusion. Her symptoms improved. Serial cardiac enzymes were negative and ACS was ruled out. She was seen by cardiology who recommended outpatient echocardiogram. Patient is discharged home to follow up with her pmd. Repeat TFTs with pmd to possibly adjust dose. Follow up with trust advisor. Follow up with supervisor shaving and splitting. If anemia persistent discussed with patient regarding possible outpatient GI evaluation. Counselled on lifestyle and diet modifications and to repeat A1c in 3-6 months. Yordan Bell MD Hospitalist.
--- NOTE | 2018-01-16 08:10 | CON ---
DATE: 01/14/2018 REASON FOR THE CONSULTATION AND FOLLOWUP: Sinus tachycardia, shortness of breath. BRIEF CLINICAL HISTORY: This is a 47-year-old [place] female with past medical history significant obesity, hypertension, hypothyroidism, chronic anemia requiring blood transfusion admitted with hemoglobin 7.5, very short of breath, feels tired. Denies any chest pain. Cardiac consult was called for cardiac evaluation. PAST MEDICAL HISTORY: Significant for hypothyroidism, heavy menstrual period, chronic anemia requiring blood transfusion and iron supplementation. FAMILY HISTORY: Significant for coronary artery disease. PREVIOUS CARDIAC WORKUP: As follows: The patient had an echocardiography on 01/31/2017 that revealed normal LV function, left ventricular ejection fraction within normal limit, no segmental wall motion abnormality. CURRENT MEDICATIONS: The patient is taking at home metoprolol 50 mg twice a day, losartan 50 mg daily, levothyroxine, folic acid, ferrous sulfate, cyanocobalamin and albuterol . REVIEW OF SYSTEMS: As per HPI. ALLERGIES: NO KNOWN DRUG ALLERGY. PHYSICAL EXAMINATION: VITAL SIGNS: Temperature of 195, blood pressure 124/67. HEENT: PERRLA. Extraocular muscles intact. NECK: Supple. No carotid bruit or thyromegaly. CHEST: Clear to auscultation. HEART: S1 and S2, regular. ABDOMEN: Soft. EXTREMITIES: Clubbing and cyanosis negative. LABORATORY DATA: Blood workup as follows: WBC 9.3, hemoglobin 7.8, hematocrit 27.1, and platelet count 532. Chemistries shows sodium 140, potassium 4.3, chloride 104, carbon dioxide 26, anion gap of . BUN 12, creatinine 0.8. IMPRESSION: Severe anemia, no evidence of acute myocardial infarction. Electrocardiogram showed normal sinus, no acute ST-T changes noted. secondary to anemia; obesity, body mass index 50 kg/m2; hypertension; hyperlipidemia; diabetes. RECOMMENDATION: We will get lipid profile, TSH, hemoglobin A1c. Continue beta-bacilio, consider packed RBC transfusion, keep hemoglobin around 10. We will get echo to assess LV function. We will follow with you. Thank you Dr. Bell, for providing us the opportunity in taking care of the patient, Amalia Blount. Jarrell Gooden MD [facility] # [id number]
== END 2018-01-15 14:29 | disposition home or self-care (01) ==
LOC: ED 20:48 → ERH 01-14 00:40 → 2RNO 01-14 04:15
PROVIDERS: ADMIT Internal Medicine; ATTEND Internal Medicine
DX: E03.9 Hypothyroidism, unspecified (principal); D50.9 Iron deficiency anemia, unspecified; R06.09 Other forms of dyspnea; I10 Essential (primary) hypertension; R07.9 Chest pain, unspecified; E78.5 Hyperlipidemia, unspecified; E11.9 Type 2 diabetes mellitus without complications; E66.01 Morbid (severe) obesity due to excess calories
CPT/HCPCS: 36415; 36430; 71045; 71250; 76856; 80053; 80061; 82550; 82728; 83001; 83002; 83036; 83540; 83550; 83615; 83735; 83880; 84100; 84443; 84484; 85025; 85027; 85378; 85610; 85730; 86850; 86900; 86920; 93005; 94640; 96365; 96366; 96372; 99285; G0378; J1650; J1756; P9016